=== PATIENT | male | born 1965 | race Caucasian/White ===

== ENCOUNTER 2016-09-17 15:28 | Inpatient (IN) | payer MEDICARE ==
--- NOTE | 2016-09-17 15:33 | HP ---
HISTORY OF PRESENT ILLNESS: This 51 year-old young man is admitted to the hospital as a direct admission from Dr. Wills's clinic. He has noticed a significant weight gain of over 55 pounds in the last 3 months. His weight was 417 pounds about 6 months ago and now it is over [address] Wills in the family practice clinic and Dr. Donaldson in the cardiology clinic. He has had increasing shortness of breath upon exertion. Increased circumference and swelling is noted of his proximal lower extremities, especially of the thighs with his calves and legs being primarily firm lymphedema presentation generally unchanged. He has been on Zaroxolyn plus Lasix at home but has failed to respond. He takes medicines that used to send him to the bathroom and it is not doing it as much now. He had a beta natriuretic peptide today in the clinic which we do not have the results of. Other studies in the clinical verbal results showed BUN 56 and creatinine 1.9. Hemoglobin 8.3 with it being 12.4 a year ago. He admits drinking fluids during the day of about a gallon per day. He is a diabetic on 90 units taken every morning and not skipping any doses recently. The patient is admitted to the hospital for more vigorous parenteral diuresis but efforts to be made to limit fluid intake to allow us to decrease some of the diuresis to allow the kidneys to slowly improve their functioning. Hopefully to be able to see Dr. Donaldson also in a couple of days when he visits the clinic. PAST MEDICAL HISTORY: 1. Diabetes mellitus for 20 years. 2. High blood pressure. 3. Intermittent anemia. 4. Atrial fibrillation. PAST SURGICAL HISTORY: 1. Pacemaker replacement of the battery in 2014. 2. Gastric bypass performed in 2001. 3. Significant duodenal anastomotic ulcer in 2009 requiring multiple blood transfusions. 4. [place] filter placed prior to the gastric bypass surgery in 2001 with no previous history of deep venous thrombosis noted. CURRENT MEDICATIONS: Please refer to the nurses' notes for a complete list of verified medications taken at home. ALLERGIES: NONE KNOWN. FAMILY HISTORY: Positive for diabetes mellitus, strokes, coronary artery disease and cancers. 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 He currently lives with his mother who he helps take care of. He is not a tobacco user nor a heavy alcohol drinker. REVIEW OF SYSTEMS: Significant weight gain noted as described above. No significant fever or chills. HEENT: Vision is quite good as well as hearing. LUNGS: Significant shortness of breath upon minimal exertion with the patient being unable to walk even 20 feet without almost falling to the ground because of the legs giving out. No recent falls with injury. CARDIOVASCULAR: No significant chest pains but he does have an irregular pulse with atrial fibrillation noted to come and go. ABDOMEN: No significant nausea, vomiting, diarrhea or blood in the stools, though he has had a history of gastrointestinal bleeding in the past. EXTREMITIES: Lower extremities have marked edema especially of the thighs. PHYSICAL EXAMINATION: VITAL SIGNS: Afebrile, blood pressure 132/80, respirations 18, pulse 88, pulse oximetry 97% on room air. Weight 204.4 kilos. GENERAL: The patient is very awake, alert, oriented and communicative. He is very helpful and is a good historian. The patient is very weak and has difficult ambulating because of the significant worsening dyspnea. HEENT: Within normal limits. NECK: Supple. No significant carotid bruits. CHEST: Lungs have diminished breath sounds but otherwise clear. CARDIOVASCULAR: Heart tones are fairly regular at this time with a grade 2/6 systolic murmur. ABDOMEN: Very obese yet soft with no organomegaly, masses or tenderness. EXTREMITIES: Significant prominence of thigh edema and swelling. There is a very hard, ni edema with minimal pitting to the leg below the knee. Peripheral pulses are difficult to appreciate from the edema state. NEUROLOGIC: The patient is awake, alert, oriented and communicative. No focal neurological deficits are noted, but the patient does have very significant weakness making ambulation across the room somewhat dangerous if at all possible because of the associated shortness of breath. LABORATORY: The only laboratory we have available was done in the clinic and showed an anemia with hemoglobin 8.3. Further studies to be performed shortly in the hospital for review. ASSESSMENT: 1. Marked severe exertional dyspnea probably related to fluid overload with associated pulmonary edema and congestive heart failure. 2. Chronic congestive heart failure of undetermined etiology with significant association with weight gain over the last 3 months. 3. Renal insufficiency present possibly aggravated by prerenal state with fairly heavy outpatient diuresis being tried. 4. Acute anemia with hemoglobin 8.3 with a microcytic hypochromic presentation indices. Hemoglobin was 12.4 a year ago. 5. Recent pacemaker battery replacement in 2014. 6. Chronic sleep apnea for which he uses a BiPAP occasionally not having brought it in with him from home. 7. Chronic atrial fibrillation currently not on Coumadin but is on baby aspirin because of a significant gastrointestinal bleed in the past. 8. History of gastric bypass surgery in 2001 with subsequent weight loss from over 500 pounds down to 417 pounds 6 months ago. 9. History of acute duodenal anastomotic ulcer hemorrhage in 2010 requiring multiple blood transfusions. 10. Exogenous obesity. 11. Chronic edema state worsening, especially by documented polydipsia drinking over a gallon of fluids per day. 12. Diabetes mellitus on Toujeo concentrated insulin doing fairly well yet requiring further observation and management. 13. History of hypertension. 14. History of a [place] filter in place and placed before the gastric bypass 15 years ago. No previous history of deep venous thrombosis. PLAN: The patient is admitted to the hospital for intermediate care. Fairly strict and restrictive fluid limitations are imposed and parenteral diuresis is introduced. Will try some Bumex along with the loop diuretic Lasix and observe. Diabetic diet. Continue with the Toujeo insulin 90 units every AM and adjust accordingly. Increase activity level. Have Physical Therapy evaluate for safety of ambulation and for confidence of ambulation. Await lab studies in the morning. Try a 6" Moose gentle wrap to each thigh to help mobilize some of the extra fluid in the tissues to enable increased renal clearance. Continue with SCD and Lovenox for DVT prophylaxis. Observe closely for any evidence of gastrointestinal bleed. Close followup and continue with outpatient management when clinically stable by return to Dr. Wills's clinic. #[id number] [facility]
[2016-09-17] MEDS ORDERED: NITROGLYCERIN 0.4 MG 25 EA TAB SL PRN (18:03)
[2016-09-17] MEDS ORDERED: GLUCAGON INJ 1 MG VIAL SUBCU PRN (18:03)
[2016-09-17] MEDS ORDERED: DEXTROSE 50% 25 GM/50 ML SYG IV PRN (18:03)
[2016-09-17] MEDS ORDERED: MAGNESIUM HYDROXIDE 30 ML UD PO PRN (18:03)
[2016-09-17] MEDS ORDERED: FUROSEMIDE INJ 100 MG/10 ML VIAL IV ONE (18:20)
[2016-09-17] MEDS ORDERED: LEVALBUTEROL NEBS 1.25 MG/3 ML VIAL INH SCH (18:30)
[2016-09-17] MEDS: ENOXAPARIN SODIUM 30 MG/0.3 ML SYG SUBCU SCH (18:41)
[2016-09-17] MEDS: IV SET AND CAP CHANGE INJ INJ SCH (18:41)
[2016-09-17] MEDS ORDERED: SUCRALFATE 1 GM TAB PO ONE (20:08)
[2016-09-17] MEDS ORDERED: METOPROLOL TARTRATE 50 MG TAB ONE (20:08)
[2016-09-17] MEDS ORDERED: ENALAPRIL MALEATE 5 MG TAB ONE (20:08)
[2016-09-17] MEDS: INSULIN LISPRO 100 UNITS/ML PEN SUBCU SCH (20:57)
[2016-09-17] MEDS ORDERED: ENALAPRIL MALEATE 20 MG PO SCH (21:00)
[2016-09-17] MEDS ORDERED: SUCRALFATE 1 GM/10 ML 1 GM UD PO SCH (21:00)
[2016-09-17] MEDS ORDERED: OMEPRAZOLE CAP 20 MG CAP PO SCH (21:00)
[2016-09-17] MEDS ORDERED: POTASSIUM CHLORIDE 10 MEQ TAB PO SCH (21:00)
[2016-09-17] MEDS ORDERED: NON-FORMULARY MEDICATION 1 EA MIS (Metoprolol Tartrate [Metoprolol Tartrate] 100 MG) PO SCH (21:00)
[2016-09-18] MEDS: NON-FORMULARY MEDICATION 1 EA MIS (Canagliflozin [Invokana] 300 MG) PO SCH (06:08)
[2016-09-18] MEDS ORDERED: diphenhydrAMINE HCL 25 MG CAP PO ONE (06:41)
[2016-09-18] MEDS ORDERED: ACETAMINOPHEN 325 MG TAB PO ONE (06:42)
[2016-09-18] MEDS ORDERED: OMEPRAZOLE CAP 20 MG CAP ONE (07:08)
[2016-09-18] MEDS ORDERED: POTASSIUM CHLORIDE 10 MEQ TAB PO ONE (07:08)
[2016-09-18] MEDS ORDERED: BUMETANIDE TAB 2 MG TAB ONE (07:08)
[2016-09-18] MEDS ORDERED: METOPROLOL TARTRATE 50 MG TAB ONE (07:09)
[2016-09-18] MEDS ORDERED: ASPIRIN TABLET 325 MG TAB ONE (07:09)
[2016-09-18] MEDS ORDERED: diphenhydrAMINE HCL 25 MG CAP ONE (07:09)
[2016-09-18] MEDS ORDERED: ASCORBIC ACID 500 MG TAB ONE (07:09)
[2016-09-18] MEDS ORDERED: DIGOXIN 0.25 MG TAB ONE (07:09)
[2016-09-18] MEDS ORDERED: ENALAPRIL MALEATE 5 MG TAB ONE (07:09)
[2016-09-18] MEDS ORDERED: FUROSEMIDE INJ 40 MG/4 ML VIAL ONE (07:10)
[2016-09-18] MEDS ORDERED: FLUoxetine HCL 20 MG CAP ONE (07:10)
[2016-09-18] MEDS ORDERED: SUCRALFATE 1 GM/10 ML 1 GM UD ONE (07:10)
[2016-09-18] MEDS ORDERED: ENOXAPARIN SODIUM 30 MG/0.3 ML SYG SUBCU ONE (07:10)
[2016-09-18] MEDS ORDERED: SODIUM CHLORIDE 0.9% 10 ML VIAL IV PRN (07:13)
[2016-09-18] MEDS: INSULIN LISPRO 100 UNITS/ML PEN SUBCU SCH ×4 (08:13→21:01)
[2016-09-18] MEDS: POTASSIUM CHLORIDE 10 MEQ TAB PO SCH ×2 (08:13→17:27)
[2016-09-18] MEDS: METOPROLOL TARTRATE 50 MG TAB PO SCH ×2 (08:13→17:27)
[2016-09-18] MEDS: METFORMIN HCL PO SCH ×2 (08:14→17:28)
[2016-09-18] MEDS: SITAGLIPTIN PO SCH ×2 (08:14→17:28)
[2016-09-18] MEDS: ENALAPRIL MALEATE 5 MG TAB PO SCH ×2 (09:18→20:50)
[2016-09-18] MEDS: ASCORBIC ACID 500 MG TAB PO SCH (09:18)
[2016-09-18] MEDS: ASPIRIN TABLET 325 MG TAB PO SCH (09:18)
[2016-09-18] MEDS: SUCRALFATE 1 GM/10 ML 1 GM UD PO SCH ×3 (09:19→20:50)
[2016-09-18] MEDS: FLUoxetine HCL 20 MG CAP PO SCH (09:19)
[2016-09-18] MEDS: BUMETANIDE TAB 2 MG TAB PO SCH ×2 (09:19→17:26)
[2016-09-18] MEDS: FUROSEMIDE INJ 40 MG/4 ML VIAL IV SCH ×2 (09:20→17:26)
[2016-09-18] MEDS: INSULIN GLARGINE SC SCH (09:20)
[2016-09-18] MEDS: SODIUM CHLORIDE 0.9% (FLUSH) 10 ML SYG IV SCH ×2 (09:20→20:52)
[2016-09-18] MEDS: PANTOPRAZOLE SODIUM IV 40 MG VIAL IV SCH (09:22)
[2016-09-18] MEDS: LEVALBUTEROL NEBS 1.25 MG/3 ML VIAL INH SCH ×3 (09:25→20:45)
[2016-09-18] MEDS: DIGOXIN 0.25 MG TAB PO SCH (13:00)
[2016-09-18] MEDS ORDERED: SODIUM CHLORIDE 0.9% 500ML 500 ML ONE (14:19)
[2016-09-18] MEDS: SODIUM CHLORIDE 0.9% (FLUSH) 10 ML SYG IV PRN ×2 (14:41→22:57)
[2016-09-18] MEDS: SODIUM CHLORIDE 0.9% 500ML 500 ML IVS PRN ×2 (14:42→22:56)
[2016-09-18] MEDS ORDERED: SUCRALFATE 1 GM/10 ML 1 GM UD PO SCH (16:30)
[2016-09-18] MEDS ORDERED: OMEPRAZOLE CAP 20 MG CAP PO SCH (16:30)
[2016-09-18] MEDS: ENOXAPARIN SODIUM 30 MG/0.3 ML SYG SUBCU SCH (17:38)
[2016-09-19] MEDS: SUCRALFATE 1 GM/10 ML 1 GM UD PO SCH ×4 (06:19→20:58)
--- NOTE | 2016-09-19 07:16 | RAD ---
EXAM: Two view chest. INDICATION: Chest pain. COMPARISON: Chest x-ray: None. FINDINGS: Cardiac silhouette: Mildly enlarged with a left chest wall pacemaker in place [place]: Unremarkable. Lobar consolidation: None. Pleural effusion: None. Pneumothorax: None. Other: None. Bones: Unremarkable. Other: None. IMPRESSION: 1. No acute cardiopulmonary process. Electronically signed by: Marvin Soni MD 09/19/2016 7:15 AM ENTERTAINMENT AGENT
[2016-09-19] MEDS: INSULIN LISPRO 100 UNITS/ML PEN SUBCU SCH ×4 (08:12→21:00)
[2016-09-19] MEDS: METOPROLOL TARTRATE 50 MG TAB PO SCH ×2 (08:14→16:40)
[2016-09-19] MEDS: POTASSIUM CHLORIDE 10 MEQ TAB PO SCH ×2 (08:14→16:40)
[2016-09-19] MEDS: LEVALBUTEROL NEBS 1.25 MG/3 ML VIAL INH SCH ×3 (08:49→20:17)
--- NOTE | 2016-09-19 08:56 | PN ---
SUPERVISING PHYSICIAN: Juan Peterson MD DATE: 09/18/16 SUBJECTIVE: The patient is lying in his hospital bed. He has just received one unit of blood. He states he feels much better. He denies any shortness of breath, chest pain, nausea, vomiting or abdominal pain. OBJECTIVE: VITAL SIGNS: Afebrile. Heart rate 61. Blood pressure 118/73. Respiratory rate 20. O2 saturation 95%. GENERAL: This is a 51-year-old, obese, male patient who is lying in his hospital bed. LUNGS: Clear to auscultation bilaterally, diminished at the bases. CARDIAC: Regular rate and rhythm. ABDOMEN: Soft and rounded, nontender. Bowel sounds are positive. NEUROLOGIC: Awake, alert and oriented times three. LABORATORY: Hemoglobin 8, hematocrit 25.6, BUN 54, creatinine 1.67. All other labs and films have been reviewed via the EMR. ASSESSMENT: 1. Marked severe exertional dyspnea, probably related to fluid overload with associated pulmonary edema and congestive heart failure. 2. Chronic congestive heart failure of undetermined etiology with significant association with weight gain over the last three months. 3. Renal insufficiency. 4. Acute anemia with hemoglobin 8 and hematocrit 25.6. 5. Recent pacemaker battery placement in 2014. 6. Chronic sleep apnea for which he uses BiPAP occasionally. 7. Chronic atrial fibrillation, currently not Coumadin, but is on a baby aspirin because of history of significant gastrointestinal bleed in the past. 8. History of gastric bypass surgery in 2001. His previous weight was over 500 pounds and he was 417 about six months ago. 9. History of acute duodenal anastomotic ulcer hemorrhage in 2009 requiring multiple blood transfusions. 10. Exogenous obesity. 11. Chronic edema state, worsening. 12. Diabetes mellitus on Toujeo concentrated insulin. 13. History of hypertension. 14. History of [place] filter placed before the gastric bypass 15 years ago. PLAN: At this point, he is breathing much better and he has received one unit of blood. He will receive an additional unit tonight. He said he had had a GI bleed back in [address] Lockhart had to scope him. He has not had any issues since then, so he will need very close followup with GI physician after discharge. He has not had any stool guaiacs at this point, but he diuresed almost 4 liters overnight and is feeling much improved. We will have to watch his fluid status in the morning after his blood. I have done routine lab in the morning. He will also need a cardiac consult with Dr. Donaldson for ECHO and management of his CHF. I will consult him tomorrow. We will continue to follow the patient closely, encourage good pulmonary toilet. Dr. Peterson is the collaborating physician and available for consultation. #[id number] [facility]
[2016-09-19] MEDS: FLUoxetine HCL 20 MG CAP PO SCH (09:21)
[2016-09-19] MEDS: BUMETANIDE TAB 2 MG TAB PO SCH ×2 (09:21→16:40)
[2016-09-19] MEDS: ASCORBIC ACID 500 MG TAB PO SCH (09:21)
[2016-09-19] MEDS: ENALAPRIL MALEATE 5 MG TAB PO SCH ×2 (09:21→20:58)
[2016-09-19] MEDS: ASPIRIN TABLET 325 MG TAB PO SCH (09:21)
[2016-09-19] MEDS: LINAGLIPTIN 5 MG TAB PO SCH (09:21)
[2016-09-19] MEDS: FUROSEMIDE INJ 40 MG/4 ML VIAL IV SCH ×2 (09:21→16:40)
[2016-09-19] MEDS: SODIUM CHLORIDE 0.9% (FLUSH) 10 ML SYG IV SCH ×2 (09:22→20:58)
[2016-09-19] MEDS: NON-FORMULARY MEDICATION 1 EA MIS (Canagliflozin [Invokana] 300 MG) PO SCH (10:23)
[2016-09-19] MEDS: INSULIN GLARGINE SC SCH (10:23)
[2016-09-19] MEDS: PANTOPRAZOLE SODIUM IV 40 MG VIAL IV SCH (10:31)
[2016-09-19] MEDS: SITagliptin 50 MG TAB PO SCH ×2 (10:33→16:40)
[2016-09-19] MEDS: metFORMIN HCL 500 MG TAB PO SCH ×2 (10:33→16:40)
[2016-09-19] MEDS: SITAGLIPTIN PO SCH (10:55)
[2016-09-19] MEDS: METFORMIN HCL PO SCH (10:55)
[2016-09-19] MEDS: DIGOXIN 0.25 MG TAB PO SCH (11:35)
[2016-09-19] MEDS ORDERED: CYANOCOBALAMIN INJ 1,000 MCG/ML INJ IM ONE (17:17)
--- NOTE | 2016-09-19 19:37 | PN ---
DATE: 09/19/16 SUPERVISING PHYSICIAN: Juan Peterson M.D. SUBJECTIVE: The patient is sitting up in his bed. He had just been walking in his room. He states he does feel much better, although he is still at times very weak. He was not sure what Dr. Donaldson' plan for him was, but he was told that most of his issues may be due to his low blood count. He denies any chest pain, shortness of breath, nausea, vomiting or diarrhea. Denies any dark bloody stools or tarry stools. OBJECTIVE: VITAL SIGNS: Afebrile, heart rate 76, blood pressure 144/85, respiratory rate 20, O2 sat is 96%. RESPIRATORY: Essentially clear to auscultation bilaterally. CARDIAC: Regular rate and rhythm. ABDOMEN: Soft, nondistended, non-tender. Bowel sounds are positive. NEUROLOGIC: He is awake, alert and oriented times three. LABORATORY: WBCs are 6.9, hemoglobin 9.2, hematocrit 29.7. Sodium 139, potassium 3.7, chloride 97, carbon dioxide 33, BUN 45, creatinine 1.34. Chest x -ray shows no acute cardiopulmonary process. Echocardiogram today per Dr. Donaldson shows a left ventricular ejection fraction of 55 to 60%. He has severe left atrial enlargement and trace to mild lateral valve regurgitation. There is moderate tricuspid valve regurgitation in her right ventricle, systolic pressure is approximately 45 mm which is a moderate elevation. Dr. Donaldson stated that he believed the patient's symptoms are mostly on the basis of the anemia which needs to be further evaluated, and he recommended that his hemoglobin stay at 9 or greater. All other labs and films have been reviewed via the EMR. ASSESSMENT: 1. Marked severe exertional dyspnea probably related to fluid overload with associated pulmonary edema and congestive heart failure. 2. Chronic congestive heart failure with an ejection fraction of 55 to 60% per echocardiogram that Dr. Donaldson performed today. 3. Renal insufficiency. 4. Acute anemia with a hemoglobin that is 9.2 even after 2 units of packed red blood cells. Hemoglobin was 8 yesterday. 5. Recent pacemaker battery replacement in 2014. 6. Chronic sleep apnea for which he uses BiPAP occasionally. 7. Chronic atrial fibrillation, currently not Coumadin, but is on a baby aspirin because of history of significant gastrointestinal bleed in the past. 8. History of gastric bypass surgery in 2001. His previous weight was over 500 pounds and he was 417 about six months ago. 9. History of acute duodenal anastomotic ulcer hemorrhage in 2010 requiring multiple blood transfusions. 10. Exogenous obesity. 11. Chronic edema state, worsening. 12. Diabetes mellitus on Toujeo concentrated insulin. 13. History of hypertension. PLAN: We will continue present supportive care. I have discontinued his Lovenox for now. Based on Dr. Donaldson' recommendations, I will repeat his CBC and chemistries in the morning. I suspect that he will need another 2 units of packed red blood cells. I have encouraged him to get up and ambulate. He does have a [place] filter, but he does need to get up and about to prevent DVTs. We will decide tomorrow if he needs to be continued on the baby aspirin. He has hemoccult for his stool ordered, but the nurse was unable to get a sample of his stool today. The patient and I have talked about it and he knows to call the nurse if he has a bowel movement so we can do the hemoccult on his stool. He will most likely need close followup with his H&H as we want to keep his hemoglobin greater than 9. I have also given him a B12 injection. I am not sure where his blood loss is coming from, but we will monitor his stool guaiacs as well as his hemoglobin. He may need to be scoped by Dr. Lockhart again. Otherwise we will continue to monitor the patient closely and followup as needed. Dr. Peterson is the collaborating physician available for consultation. #[id number] [facility]
[2016-09-20] MEDS ORDERED: ACETAMINOPHEN W/COD #3 TAB 1 EA TAB PO PRN (00:44)
[2016-09-20] MEDS ORDERED: ACETAMINOPHEN 325 MG TAB PO ONE (00:58)
[2016-09-20] MEDS: SUCRALFATE 1 GM/10 ML 1 GM UD PO SCH ×4 (06:39→21:30)
[2016-09-20] MEDS: NON-FORMULARY MEDICATION 1 EA MIS (Canagliflozin [Invokana] 300 MG) PO SCH (06:40)
[2016-09-20] MEDS: LEVALBUTEROL NEBS 1.25 MG/3 ML VIAL INH SCH ×3 (08:46→20:23)
[2016-09-20] MEDS: INSULIN LISPRO 100 UNITS/ML PEN SUBCU SCH ×4 (08:51→21:30)
[2016-09-20] MEDS: metFORMIN HCL 500 MG TAB PO SCH ×2 (08:52→17:10)
[2016-09-20] MEDS: METOPROLOL TARTRATE 50 MG TAB PO SCH ×2 (08:53→17:09)
[2016-09-20] MEDS: BUMETANIDE TAB 2 MG TAB PO SCH ×2 (08:54→17:09)
[2016-09-20] MEDS: FLUoxetine HCL 20 MG CAP PO SCH (08:54)
[2016-09-20] MEDS: LINAGLIPTIN 5 MG TAB PO SCH (08:54)
[2016-09-20] MEDS: POTASSIUM CHLORIDE 10 MEQ TAB PO SCH ×2 (08:54→17:07)
[2016-09-20] MEDS: ENALAPRIL MALEATE 5 MG TAB PO SCH ×2 (08:54→21:30)
[2016-09-20] MEDS: INSULIN GLARGINE SC SCH (08:55)
[2016-09-20] MEDS: ASPIRIN TABLET 325 MG TAB PO SCH (08:55)
[2016-09-20] MEDS: ASCORBIC ACID 500 MG TAB PO SCH (08:55)
[2016-09-20] MEDS: FUROSEMIDE INJ 40 MG/4 ML VIAL IV SCH ×2 (09:00→17:10)
[2016-09-20] MEDS: PANTOPRAZOLE SODIUM IV 40 MG VIAL IV SCH (09:01)
[2016-09-20] MEDS: SODIUM CHLORIDE 0.9% (FLUSH) 10 ML SYG IV SCH ×2 (09:02→21:30)
[2016-09-20] MEDS: SITagliptin 50 MG TAB PO SCH ×2 (09:10→17:07)
[2016-09-20] MEDS: DIGOXIN 0.25 MG TAB PO SCH (12:26)
[2016-09-20] MEDS: FERROUS SULFATE 325 MG TAB PO SCH ×2 (12:26→17:10)
--- NOTE | 2016-09-20 12:38 | PN ---
DATE: 09/20/16 SUPERVISING PHYSICIAN: Juan Peterson M.D. SUBJECTIVE: The patient is sitting up in bed. We discussed his anemia and that he is very low in iron and that we would be giving him supplemental iron. I also informed him that he will be getting his third unit of packed red blood cells today because his hemoglobin was 9.[address] Donaldson would like us to keep it about 9. He has no complaints of chest pain, shortness of breath, nausea or vomiting. He did say he was trying to get up and move about as much as he could. OBJECTIVE: VITAL SIGNS: He is afebrile, heart rate 65, blood pressure 137/79, respiratory rate 20, O2 sat is 94% on room air. RESPIRATORY: Clear to auscultation bilaterally. CARDIAC: Regular rate and rhythm. ABDOMEN: Soft, nondistended, non-tender. Bowel sounds are positive. EXTREMITIES: No cyanosis , clubbing or edema. LABORATORY: Hemoglobin 9.1, hematocrit 29.7. Sodium 139, potassium 3.8, chloride 94, carbon dioxide 35, BUN 40, creatinine 1.54. Iron 15, TIBC 628.6, iron saturation 2.3. Vitamin B12 and folate are pending. Stool guaiac was, according to the Lab, slightly positive. All other labs and films have been reviewed via the EMR. ASSESSMENT: 1. Marked severe exertional dyspnea probably related to fluid overload with associated pulmonary edema and congestive heart failure. 2. Chronic congestive heart failure with an ejection fraction of 55 to 60% per echocardiogram that Dr. Donaldson performed today. 3. Renal insufficiency. 4. Acute iron deficiency anemia with a hemoglobin of 9.1 today. Will give third unit of blood today. 5. Recent pacemaker battery replacement in 2014. 6. Chronic sleep apnea for which he uses BiPAP occasionally. 7. Chronic atrial fibrillation, currently not Coumadin, but is on a baby aspirin because of history of significant gastrointestinal bleed in the past. 8. History of gastric bypass surgery in 2001. His previous weight was over 500 pounds and he was 417 about six months ago. 9. History of acute duodenal anastomotic ulcer hemorrhage in 2009 requiring multiple blood transfusions. 10. Exogenous obesity. 11. Chronic edema state, worsening. 12. Diabetes mellitus on Toujeo concentrated insulin. 13. History of hypertension. PLAN: We will give the third unit of blood that he has had during this admission to keep his hemoglobin above the recommended 9. He did a stool guaiac at Dr. Wills's office earlier this week. It was negative. The one today from the Lab was slightly positive. Will try to get at least 1 additional , it would probably be helpful for 2 additional, but we will try to get at least 1 additional stool guaiac done. If he does not have 1 before he is discharged, we will need to send him home with stool guaiac cards. I will also start him on some iron. He will most likely need a hematology consultation as well as a gastrointestinal consultation, especially if an additional guaiac is positive. Will followup very closely with Dr. Wills next week. I will order some routine lab in the morning. Depending on how he feels after his blood is infused, he will either go home this evening or tomorrow. I have encouraged to ambulate as frequently as possible. He said he has been getting up in his room and walking. I have encouraged good pulmonary hygiene. We will continue to monitor the patient closely and followup as needed. Dr. Peterson is the collaborating physician available for consultation. #[id number] [facility]
[2016-09-20] MEDS: SODIUM CHLORIDE 0.9% 500ML 500 ML IVS PRN (13:47)
[2016-09-20] MEDS: IV SET AND CAP CHANGE INJ INJ SCH (19:30)
[2016-09-20] MEDS ORDERED: ZOLPIDEM TARTRATE 10 MG TAB PO PRN (20:56)
[2016-09-20] MEDS: metOLazone 2.5 MG TAB PO SCH (22:33)
[2016-09-21] MEDS: SUCRALFATE 1 GM/10 ML 1 GM UD PO SCH ×2 (06:38→09:34)
[2016-09-21] MEDS: NON-FORMULARY MEDICATION 1 EA MIS (Canagliflozin [Invokana] 300 MG) PO SCH (06:39)
[2016-09-21] MEDS: INSULIN LISPRO 100 UNITS/ML PEN SUBCU SCH ×2 (07:13→12:06)
[2016-09-21] MEDS: FERROUS SULFATE 325 MG TAB PO SCH ×2 (07:22→12:08)
[2016-09-21] MEDS: metFORMIN HCL 500 MG TAB PO SCH (07:23)
[2016-09-21] MEDS: POTASSIUM CHLORIDE 10 MEQ TAB PO SCH ×2 (07:23→11:09)
[2016-09-21] MEDS: METOPROLOL TARTRATE 50 MG TAB PO SCH (07:23)
[2016-09-21] MEDS: SITagliptin 50 MG TAB PO SCH (07:23)
[2016-09-21] MEDS: LEVALBUTEROL NEBS 1.25 MG/3 ML VIAL INH SCH (08:50)
[2016-09-21] MEDS: SODIUM CHLORIDE 0.9% (FLUSH) 10 ML SYG IV SCH (09:00)
[2016-09-21] MEDS: ASPIRIN TABLET 325 MG TAB PO SCH (09:00)
[2016-09-21] MEDS ORDERED: POTASSIUM CHLORIDE 10 MEQ TAB PO SCH (09:00)
[2016-09-21] MEDS: metOLazone 2.5 MG TAB PO SCH (09:08)
[2016-09-21] MEDS: BUMETANIDE TAB 2 MG TAB PO SCH (09:08)
[2016-09-21] MEDS: FLUoxetine HCL 20 MG CAP PO SCH (09:08)
[2016-09-21] MEDS: LINAGLIPTIN 5 MG TAB PO SCH (09:08)
[2016-09-21] MEDS: ENALAPRIL MALEATE 5 MG TAB PO SCH (09:08)
[2016-09-21] MEDS: ASCORBIC ACID 500 MG TAB PO SCH (09:08)
[2016-09-21] MEDS: FUROSEMIDE INJ 40 MG/4 ML VIAL IV SCH (09:09)
[2016-09-21] MEDS: PANTOPRAZOLE SODIUM IV 40 MG VIAL IV SCH (09:09)
[2016-09-21] MEDS: INSULIN GLARGINE SC SCH (09:10)
[2016-09-21] MEDS ORDERED: LEVALBUTEROL NEBS 1.25 MG/3 ML VIAL NEB SCH (10:00)
[2016-09-21 10:50] VITALS: BP 137/71; TEMP 98.4; O2SAT 98
[2016-09-21] MEDS: DIGOXIN 0.25 MG TAB PO SCH (12:08)
[2016-09-21] MEDS ORDERED: metOLazone 2.5 MG TAB PO SCH (16:30)
--- NOTE | 2016-09-21 17:46 | DS ---
SUPERVISING PHYSICIAN: Juan Peterson M.D. DISCHARGE DIAGNOSIS: 1. Marked severe exertional dyspnea on admission possibly secondary to fluid overload with associated pulmonary edema and congestive heart failure with some components contributed by acute anemia. 2. Chronic congestive heart failure with an ejection fraction of 55 to 60% per echocardiogram per Dr. Donaldson on 09/19/16. 3. Renal insufficiency. 4. Acute iron deficiency anemia treated with iron and 3 units of packed red blood cells. 5. Recent pacemaker battery replacement in 2014. 6. Chronic sleep apnea secondary to obesity for which he uses BiPAP occasionally. 7. Chronic atrial fibrillation not on Coumadin due to a significant history of gastrointestinal bleed with the patient being currently on aspirin. 8. History of gastric bypass surgery in 2001 with previous weight over 500 pounds with current weight at discharge shown to be 403 pounds which is down from admission weight of 435 pounds. 9. History of acute duodenal anastomotic ulcer hemorrhage in 2009 requiring extensive blood transfusions. 10. Exogenous obesity with a BMP of 45.5. 11. Diabetes mellitus type 2 on jeo. 12. History of hypertension. HISTORY OF PRESENT ILLNESS: Mr. Carballo is a 51 year-old man patient who was admitted to the hospital directly from Dr. Wills's clinic. It was noted that the patient had a significant weight gain of over 55 pounds in the last 3 months. His weight was 417 pounds about 6 months previously and he has maxed out to over [address] Wills in the family practice clinic and Dr. Donaldson as well at Cardiology. He has had increasing shortness of breath upon exertion as well as increasing circumference and swelling noted of his proximal lower extremities, especially of the thighs, calves and legs being primarily firm lymphedema presentation. This remains unchanged. He has been on Zaroxolyn plus Lasix at home but has failed to have significant response. He takes medicines that used to send him to the bathroom and he is not doing it as much now. He had a beta natriuretic peptide on admission in the clinic and upon admission to the Medical/Surgical floor which showed to be 222. Laboratory studies in the clinic also showed that he had a BUN 56 and creatinine 1.9. Hemoglobin 8.3 with last noted hemoglobin to be 12.4 approximately a year previously. He admits drinking fluids during the day of about a gallon per day. He is a diabetic on 90 units insulin which he takes every morning and has been doing it consistently. The patient was admitted to the hospital for more vigorous parenteral diuresis in efforts to limit his fluid intake to allow for a decrease in the fluid overload with diuresis to assist with improvement of kidney function as well. He was also seen in followup during hospitalization with consultation with Dr. Donaldson who did an echocardiogram. Per report and it was noted per Dr. Donaldson that the patient had an ejection fraction of 55 to 65%. [address]. Donaldson noted he felt that the severe exertional dyspnea was more related to his ongoing severe iron deficiency anemia. LABORATORY: On initial admission, hemoglobin was 8, hematocrit 25.6. After a total transfusion of 3 units at time of discharge on 09/21 his hemoglobin was stable at 9.8 and hematocrit 31.6. White count remained within normal limits, at discharge was 9.6. Platelet count as well was within normal limits at discharge at 203,000. Differential showed to be within normal limits. Coagulation studies on admission showed INR of 1.16 with PT 13.1. Chemistries initially on admission showed normal electrolytes with potassium 4.0, BUN 54, creatinine 1.6. Liver functions showed all to be within normal limits. Troponin at less than 0.02. BNP was elevated on admission at 222. After diuresis, blood and treatment completion, the patient did show improvement in his BUN daily and at time of discharge was at 35, creatinine 1.59. Potassium was slightly low at 3.5 secondary to his diuresis. Sodium was normal at 141. Glucoses ranged from 81 to 166. He did have 1 occult blood that was positive. No microbiology specimens were submitted for culture. RADIOLOGY: He had a chest x-ray after admission to the surgical floor 2 view per radiology interpretation showed no acute cardiopulmonary processes with no pleural effusions or any lobar consolidations. The cardiac silhouette was noted to be mildly enlarged. HOSPITAL COURSE: Mr. Carballo is a 51 year-old male patient was noted in the History of Present Illness admitted for severe dyspnea and fluid overload. He was given diuresis with Lasix, Bumex and Zaroxolyn. His I's and O 's did show good results with average output daily being negative well over 3, 000. Initial weight on admission was 204.3 kilos, at time of discharge it decreased to 183.25 kilos. He remained afebrile through the admission. Vital signs: Blood pressure remained within normal limits, at time of discharge it was 137/71, satting 98% on room air. He did get 3 units of packed red blood cells which helped dramatically improve his work of breathing and decrease the exertional dyspnea. Clinically the patient did improve quite well again with fluid restrictions, diuresis and diabetic control with sliding scale. Clinically it was felt that he had improved well enough to be discharged home to followup with Dr. Wills next week as scheduled, and to have continued followup with probable GI as well as hematology in regards to the iron deficiency anemia and possible GI bleed. He did have 1 occult blood positive, but his H&H remained stable through admission with transfusion. He showed no overt blood loss per rectum or emesis. He was seen in consultation by Dr. Donaldson who did an echocardiogram in office with an estimated ejection fraction of 55 [address] 60%. [address]. Donaldson noted that he felt the patient's symptoms were more related to his obesity and severe anemia, less likely cardiac in nature. With the patient being clinically stable, he was discharged. PLAN: The patient was discharged on 09/21/16 to have close clinical followup with Dr. Wills as scheduled on 09/23/16 at 9:00 and to have specialty consultations with Hematology and Gastrointestinal services. This can be arranged through Dr. Wills's office. He was to resume all of his medication as previously instructed prior to admission and to take new medications as directed. He was instructed to take MiraLAX daily and Milk of Magnesia twice weekly to prevent any constipation secondary to taking iron therapy and Carafate. He was encouraged to use the rolling walker when ambulating to prevent falls. He was also given occult blood cards times three and to return to the hospital after collection. He was encouraged to increase activity as tolerated and to return to an 1800 ADA diet. He was instruction to return to the hospital should his condition worsen or show no improvement. NEW MEDICATIONS AT DISCHARGE: 1. Ferrous sulfate 325 mg tablet 3 times daily with food, #60. 2. MiraLAX daily as directed. All other medications were continued as previous to hospitalization. #[id number] [facility]
== END 2016-09-21 12:50 | disposition home or self-care (01) | DRG 292 ==
LOC: MS 15:28
PROVIDERS: ADMIT Family Medicine; ATTEND Nurse Practitioner Family
PROC: 30233N1 Transfusion of Nonautologous Red Blood Cells into Peripheral Vein, Percutaneous Approach (ICD-10-PCS; principal; 2016-09-18)
DX: I11.0 Hypertensive heart disease with heart failure (principal); Z68.42 Body mass index [BMI] 45.0-49.9, adult; I50.9 Heart failure, unspecified; D50.9 Iron deficiency anemia, unspecified; N28.9 Disorder of kidney and ureter, unspecified; R19.5 Other fecal abnormalities; G47.30 Sleep apnea, unspecified; E11.9 Type 2 diabetes mellitus without complications; E66.9 Obesity, unspecified; I48.2 Chronic atrial fibrillation; Z95.0 Presence of cardiac pacemaker; Z79.82 Long term (current) use of aspirin; Z98.84 Bariatric surgery status; Z79.84 Long term (current) use of oral hypoglycemic drugs; Z79.4 Long term (current) use of insulin; Z95.828 Presence of other vascular implants and grafts

== ENCOUNTER → 2016-09-30 | Outpatient (CLI) | payer MEDICARE | END | disposition home or self-care (01) | LOC: LAB.O 13:03 | PROVIDERS: ATTEND Nurse Practitioner Family | DX: D64.9 Anemia, unspecified (principal); K92.2 Gastrointestinal hemorrhage, unspecified ==

== ENCOUNTER → 2017-06-23 | Outpatient (CLI) | payer OTHER | END | disposition home or self-care (01) | LOC: GMAB 14:33 | PROVIDERS: ATTEND Family Medicine | DX: L03.116 Cellulitis of left lower limb (principal); D50.0 Iron deficiency anemia secondary to blood loss (chronic); Z12.5 Encounter for screening for malignant neoplasm of prostate; E11.42 Type 2 diabetes mellitus with diabetic polyneuropathy; E11.628 Type 2 diabetes mellitus with other skin complications | CPT/HCPCS: 82728; 83540; 83550; 84443; 86140; G0103 ==

== ENCOUNTER → 2017-10-01 | Outpatient (CLI) | payer OTHER | LOC: GMAB 18:15 | PROVIDERS: ATTEND Family Medicine | DX: D50.0 Iron deficiency anemia secondary to blood loss (chronic) (principal); R23.3 Spontaneous ecchymoses; E29.1 Testicular hypofunction; E11.65 Type 2 diabetes mellitus with hyperglycemia ==

== ENCOUNTER 2018-04-10 07:27 | Inpatient (IN) | payer OTHER ==
[2018-04-10] MEDS ORDERED: TETANUS,DIPHTHERIA,PERTUSSIS 1 EA SYG IM ONE (07:59)
[2018-04-10] MEDS ORDERED: cefTRIAXone SODIUM 2 GM in SODIUM CHL 0.9% 100ML MINI-BAG 100 ML IVPB ONE (07:59)
--- NOTE | 2018-04-10 07:59 | ED.PDOC ---
History of Present Illness - General Chief Complaint: Skin/Abrasion/Tear Stated Complaint: Redness, swelling to LLE Time Seen by Provider: 04/10/18 07:55 Source: patient Exam Limitations: no limitations - History of Present Illness Initial Comments: patient comes in today via EMS for recurrence of cellulitis. Patient states he' s had 3 episodes since January and he has chronic problems with that leg secondary to lymphedema. Patient states normally Keflex seems to help just fine but this time he has not been able to go in to see his doctor. Patient states the infection started on Thursday but since then it has worsened and now he is having systemic symptoms including subjective fever, malaise, and his hands being cold. Patient normally is treated with Keflex for this and that seems to do well. Patient denies any nausea or vomiting. Additionally, patient fell in his home several days ago. Although he landed sitting down and was able to get up on his own he's had left shoulder pain ever since. He is not sure if he caught himself on it or if he hit it when he was going down after he tripped but he has been unable to fully raise that arm ever since. He does have normal sensation and it's not particularly painful when it's at rest braced against his body. Patient has a past medical history of diabetes mellitus, hypertension , lymphedema, pacemaker placement, and congestive heart failure. Additionally, he has the lymphedema that he suffers from. He has no known drug allergies but has had a reaction he thinks in the past to shrimp. Timing/Duration: 1 week, getting worse Severity: moderate Improving Factors: nothing Worsening Factors: nothing Associated Symptoms: fever/chills, other - shoulder pain see hpi Allergies/Adverse Reactions: Allergies NO KNOWN ALLERGY Allergy (Verified 09/18/16 07:37) Home Medications: Ambulatory Orders Metoprolol Tartrate 100 mg PO BEDTIME 01/03/14 Omeprazole [Prilosec Cap] 20 mg PO BID 01/03/14 Sucralfate [Carafate] 1 gm PO BID 01/03/14 Ascorbic Acid [Vitamin C] 1,000 mg PO BID 09/17/16 Aspirin 325 mg PO BID 09/17/16 Canagliflozin [Invokana] 300 mg PO ACBK 09/17/16 Digoxin [Digitek] 250 mcg PO DAILY 09/17/16 Enalapril Maleate [Vasotec] 20 mg PO BID 09/17/16 Fluoxetine HCl [Prozac] 40 mg PO DAILY 09/17/16 Furosemide [Lasix] 40 mg PO BID 09/17/16 Insulin Glargine [Toujeo Solostar] 100 unit SC DAILY 09/17/16 Potassium Chloride [Potassium Chloride ER] 10 meq PO BIDFD 09/17/16 Zolpidem Tartrate [Ambien] 10 mg PO BEDTIME PRN 09/17/16 metOLazone [Zaroxolyn] 10 mg PO BID 09/17/16 Ferrous Sulfate [Feosol Tab] 325 mg PO DAILY 04/10/18 traZODone HCL [Desyrel] 50 mg PO BEDTIME 04/10/18 Past Medical History (General) - Patient Medical History Hx Seizures: No Hx Stroke: No Hx Asthma: No Hx of COPD: No Hx Cardiac Disorders: Yes - Arrhythmia Hx Congestive Heart Failure: Yes Hx Pacemaker: Yes Hx Hypertension: Yes Hx Diabetes: Yes Hx Gastroesophageal Reflux: Yes - Hx bleeding ulcer Hx MRSA: No Surgical History: gastric bypass, pacemaker - Vaccination History Hx Influenza Vaccination: No Hx Pneumococcal Vaccination: No - Social History Hx Tobacco Use: No Hx Alcohol Use: No Hx Substance Use: No Hx Substance Use Treatment: No Hx Physical Abuse: No Hx Emotional Abuse: No Family Medical History - Family History Father Living Status: Age at (years of age): 84 Cause of : Stroke Hx Family Asthma: No Hx Family Congestive Heart Failure: No Hx Family Hypertension: No Hx Family Stroke: Yes Hx Cardiac Disease: No Hx Family Diabetes: No Hx Family Cancer: No Mother Family History: Unknown Age (years): 81 Living Status: Still Living Hx Family Asthma: Yes Hx Family Congestive Heart Failure: No Hx Family Hypertension: Yes Hx Family Stroke: Yes - X2 Hx Cardiac Disease: No Hx Family Diabetes: Yes Hx Family Cancer: No Progress - Progress Progress: After receiving his results we have asked patient about his kidneys. He states now that he thinks about it he has been told that by his PCP. Patient states that he still is taking his Naprosyn for pain. We explained this is very important and he should stop taking that medication and no take other dose of Toradol like what he was given today. He voices understanding. 04/10/18 09:22 04/10/18 10:34 received labs from clinic and his baseline is 1.5. He admits to doubling his water pills lately. 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 - Results/Orders Results/Orders: Laboratory Results WBC 11.1 K/mm3 (4.8-10.8) H 04/10/18 08:25 RBC 4.19 M/mm3 (4.70-6.10) L 04/10/18 08:25 Hgb 13.6 gm/dL (14.0-18.0) L 04/10/18 08:25 Hct 40.4 % (42.0-52.0) L 04/10/18 08:25 MCV 96.4 fl (80.0-94.0) H 04/10/18 08:25 MCH 32.4 pg (27.0-31.0) H 04/10/18 08:25 MCHC 33.6 g/dL (33.0-37.0) 04/10/18 08:25 RDW 15.7 % (11.5-14.5) H 04/10/18 08:25 Plt Count 106 K/mm3 (130-400) L 04/10/18 08:25 MPV 10.5 fl (7.40-10.4) H 04/10/18 08:25 Absolute Neuts (auto) 9.50 K/uL (1.8-6.8) H 04/10/18 08:25 Absolute Lymphs (auto) 0.40 K/uL (1.0-3.4) L 04/10/18 08:25 Absolute Monos (auto) 1.10 K/uL (0.2-0.8) H 04/10/18 08:25 Absolute Eos (auto) 0.00 K/uL (0.0-0.4) 04/10/18 08:25 Absolute Basos (auto) 0.00 K/uL (0.0-0.1) 04/10/18 08:25 Neutrophils % 85.9 % (42.0-78.0) H 04/10/18 08:25 Lymphocytes % 3.8 % (20.0-50.0) L 04/10/18 08:25 Monocytes % 9.9 % (2.0-9.0) H 04/10/18 08:25 Eosinophils % 0.1 % (1.0-5.0) L 04/10/18 08:25 Basophils % 0.3 % (0.0-2.0) 04/10/18 08:25 Sodium 133 mmol/L (135-145) L 04/10/18 08:25 Potassium 3.6 mmol/L (3.6-5.0) 04/10/18 08:25 Chloride 93 mmol/L (101-111) L 04/10/18 08:25 Carbon Dioxide 24 mmol/L (21-31) 04/10/18 08:25 Anion Gap 19.6 (12-18) H 04/10/18 08:25 BUN 93 mg/dL (7-18) H 04/10/18 08:25 Creatinine 4.13 mg/dL (0.6-1.3) H 04/10/18 08:25 BUN/Creatinine Ratio 22.5 (10-20) H 04/10/18 08:25 Random Glucose 236 mg/dL (70-105) H 04/10/18 08:25 Serum Osmolality 302.7 mOsm/L (275-295) H 04/10/18 08:25 Lactic Acid 1.2 mmol/L (0.5-2.2) 04/10/18 08:25 Calcium 8.7 mg/dL (8.4-10.2) 04/10/18 08:25 Total Bilirubin 1.9 mg/dL (0.2-1.0) H 04/10/18 08:25 AST 77 IU/L (10-42) H 04/10/18 08:25 ALT 61 IU/L (10-60) H 04/10/18 08:25 Alkaline Phosphatase 144 IU/L (42-121) H 04/10/18 08:25 Serum Total Protein 7.2 gm/dL (6.4-8.2) 04/10/18 08:25 Albumin 3.1 g/dl (3.2-5.5) L 04/10/18 08:25 Globulin 4.1 gm/dL (2.3-3.5) H 04/10/18 08:25 Albumin/Globulin Ratio 0.8 (1.1-1.9) L 04/10/18 08:25 Departure - Departure Clinical Impression: Cellulitis Qualifiers: Site of cellulitis: extremity Site of cellulitis of extremity: lower extremity Laterality: left Qualified Code(s): L03.116 - Cellulitis of left lower limb Disposition: Admit Patient Condition: Fair Departure Forms: ED Discharge - Pt. Copy, Patient Portal Self Enrollment Instructions: DI for Abrasion Referrals: Donnell Wills MD [Active Staff] - 1-2 Weeks Home Medications: Ambulatory Orders Metoprolol Tartrate 100 mg PO BEDTIME 01/03/14 Omeprazole [Prilosec Cap] 20 mg PO BID 01/03/14 Sucralfate [Carafate] 1 gm PO BID 01/03/14 Ascorbic Acid [Vitamin C] 1,000 mg PO BID 09/17/16 Aspirin 325 mg PO BID 09/17/16 Canagliflozin [Invokana] 300 mg PO ACBK 09/17/16 Digoxin [Digitek] 250 mcg PO DAILY 09/17/16 Enalapril Maleate [Vasotec] 20 mg PO BID 09/17/16 Fluoxetine HCl [Prozac] 40 mg PO DAILY 09/17/16 Furosemide [Lasix] 40 mg PO BID 09/17/16 Insulin Glargine [Toujeo Solostar] 100 unit SC DAILY 09/17/16 Potassium Chloride [Potassium Chloride ER] 10 meq PO BIDFD 09/17/16 Zolpidem Tartrate [Ambien] 10 mg PO BEDTIME PRN 09/17/16 metOLazone [Zaroxolyn] 10 mg PO BID 09/17/16 Ferrous Sulfate [Feosol Tab] 325 mg PO DAILY 04/10/18 traZODone HCL [Desyrel] 50 mg PO BEDTIME 04/10/18
--- NOTE | 2018-04-10 08:11 | RAD ---
EXAM DESCRIPTION: Humerus,Left CLINICAL HISTORY: 53 years Male, fall with pain to left shoulder COMPARISON: None. FINDINGS: No fracture or dislocation. Soft tissues are unremarkable. IMPRESSION: No acute abnormality. Electronically signed by: Jaxon Kern DO 04/10/2018 8:10 AM CDT
--- NOTE | 2018-04-10 08:12 | RAD ---
EXAM DESCRIPTION: Shoulder,Left 2 or More Views CLINICAL HISTORY: 53 years Male, fall with pain to left shoulder COMPARISON: None. FINDINGS: No fracture or dislocation. Degenerative changes in the AC joint. Soft tissues are unremarkable. Visualized lung gong are clear. Pacemaker is partially visualized. IMPRESSION: No acute abnormality. Electronically signed by: Jaxon Kern DO 04/10/2018 8:10 AM CDT
[2018-04-10] MEDS ORDERED: KETOROLAC TROMETHAMINE INJ 30 MG/ML VIAL IV ONE (08:34)
[2018-04-10] MEDS ORDERED: CYCLOBENZAPRINE HCL 5 MG TAB PO ONE (08:34)
[2018-04-10] MEDS ORDERED: SODIUM CHL 0.9% 100ML MINI-BAG 100 ML IVPB ONE (08:44)
--- NOTE | 2018-04-10 11:00 | HP ---
SUPERVISING PHYSICIAN: Tushar Almaguer M.D. CHIEF COMPLAINT: Swelling of left lower leg with redness and cellulitis. HISTORY OF PRESENT ILLNESS: Mr. Carballo is a 53 year-old male patient that presented to the Emergency Room today via EMS with left lower leg cellulitis. He reports that he has had 3 previous episodes since this past January and has chronic lymphedema resulting in chronic lower extremity swelling. He notes in the past he just takes Keflex and he gets better, but he has not been able to see his doctor since Dr. Wills retired. He also notes that it started worsening since Thursday and has continued to just not improve, and today he started having some subjective fever and more symptoms, and at that time called 911. He is morbidly obese, over 400 pounds, and has in the past had a surgical weight loss surgery with a gastric bypass. He notes that he fell yesterday and he landed on his buttocks and in attempting to try to get injured his left shoulder. He does have a history of diabetes mellitus, hypertension as well as congestive heart failure. On laboratory studies in the E. [facility] today, it was showing that he had a significant decrease in renal function from baseline with a creatinine of 4.13 which baseline creatinine in the past has been around 1.3 to 1.6. BUN was 99. He notes that he has been trying to keep plenty of fluids , but has become significantly dehydrated. He denied any nausea, vomiting or diarrhea. White count showed just a mild leukocytosis of 11,100 but there was a left shift. The patient also reports that he takes Naprosyn twice daily for generalized body aches and specifically knee pain. Dr. Lino requested the patient be admitted for ongoing treatment of lower left leg cellulitis and acute renal failure. The patient is now going to be admitted to the Medical/ Surgical floor for further treatment and evaluation, and was stable at time of admission. PAST MEDICAL HISTORY: 1. Diabetes mellitus diagnosed 20 years previously on both orally therapy as well as insulin. 2. Hypertension. 3. Intermittent anemia secondary to gastrointestinal bleeds as well as gastric bypass. 4. Atrial fibrillation with a pacemaker implanted. PAST SURGICAL HISTORY: 1. Pacemaker implantation in 1999 with a battery change in 2014. 2. Gastric bypass in 2001. 3. Duodenal anastomotic ulcer in 2009 requiring multiple blood transfusions. 4. [place] filter placement prior to his gastric bypass surgery in 2001 but no history of deep venous thrombus. CURRENT MEDICATIONS: 1. Zaroxolyn 10 mg at bedtime. 2. Desyrel 50 mg at bedtime. 3. Ambien 10 mg at bedtime as needed. 4. Carafate 1 gram b.i.d. 5. Prilosec 20 mg b.i.d. 6. Metoprolol 100 mg at bedtime. 7. Lasix 40 mg b.i.d. 8. Prozac 40 mg daily. 9. Feosol tablets 325 mg daily. 10. Vasotec 20 mg b.i.d. for blood pressure control. 11. Digitek 250 mcg daily. 12. Invokana 300 mg at breakfast. 13. Aspirin. 14. Vitamin C 1,000 mg b.i.d. 15. Potassium chloride 10 mEq b.i.d. 16. Toujeo Solostar 100 units subcue daily. ALLERGIES: NO KNOWN DRUG ALLERGIES. FAMILY HISTORY: Positive for diabetes mellitus, strokes, coronary artery disease and cancers. SOCIAL HISTORY: He has worked in the past as a truck mechanic and heavy equipment operator/paver, but is disabled at this point secondary to severe knee degenerative disorder. He lives in [place]. His mother lives with him who he helps take care of. He has never smoked but drinks beer on a rare occasion. REVIEW OF SYSTEMS: CONSTITUTIONAL: He reports general malaise, weakness, fever subjective. He denies any significant weight changes. HEENT: Denies any headaches, sore throat, nasal congestion, ear aches. CHEST: No significant shortness of breath other than just his normal exertional dyspnea. No wheezing or coughing. CARDIOVASCULAR: Denies any chest pains, palpitations. Does have a history of atrial fibrillation and chronic peripheral edema. GASTROINTESTINAL: Denies any nausea or vomiting, diarrhea or constipation. Notes that his stools change somewhat in color from dark black to green, but denies any bright red blood. EXTREMITIES: As noted in History of Present Illness, marked edema especially involving the thighs and the left lower leg. NEUROLOGIC: Denies any headaches but notes his thought process seems to be fuzzy. He has had a significant increase in weakness but no ataxia. No seizures, but he has had weakness that resulted in falls. He does note he has chronic paresthesias or numbness to both legs below the knees secondary to diabetic neuropathy. No other neurological deficits. PHYSICAL EXAMINATION: VITAL SIGNS: Temperature on admission st 98.4, pulse 63, blood pressure 131/70 , respirations 20, satting 94% on room air. Admission weight was 199.3 kg. GENERAL: On admission to the Medical/Surgical floor, the patient appears to be without any acute distress. He does look tired. He is morbidly obese. He does look extremely dry. HEENT: Tympanic membranes were clear bilaterally. Oropharynx was pink with mucosal membranes being notably dry and cracked both of his tongue and lips, but no lesions were noted. NECK: Supple, non-tender with full range of motion. No jugular venous distention. CHEST: Lung sounds are clear bilaterally with no rhonchi, wheezing or rales. CARDIOVASCULAR: Regular rate and rhythm with a grade 2/6 systolic murmur. No rubs or gallops. ABDOMEN: Morbidly obese but soft. No masses or tenderness. Bowel sounds were present. EXTREMITIES: Lower extremities have significant prominence of the thigh with edema and swelling more prominent on the left than the right with some ni edema noted to both legs below the knee with the left showing ongoing erythema and weeping with serous fluid. Pulses are felt with Doppler bilaterally. He does move all extremities ad gladys, except he is having some significant weakness in his left shoulders after a fall. He is not able to abduct but he can move without any difficulty his lower arm flexion. Survey Chief bilaterally were equal. There is notable pain over the shoulder on the anterior aspect with no obvious trauma or signs of dislocation. NEUROLOGIC: Cranial nerves II-XII are grossly intact. Facial features are symmetrical. Extraocular movements are within normal limits. There is no notable nystagmus. He is alert and oriented times three. LABORATORY: CBC on admission showed white count 11,100 with hemoglobin 13.6, hematocrit 44.4, platelet count 106,000. Differential did show a left shift but no bands. Coagulation studies showed a PT of 10.3 with PTT of 36.8. Chemistries showed hyponatremia of 133, potassium 3.6, anion gap was elevated at 19.6, BUN was elevated at 93, creatinine at 4.13, glucose 236. Serum osmolality 203, lactic acid 1.2, calcium 8.7. Liver functions showed elevation of bilirubin to 1.9. AST 77, ALT 61, alkaline phosphatase 144. BNP was elevated at 733. Urinalysis showed just 100 glucose, otherwise within normal limits. Digoxin level was 0.8. RADIOLOGY: Initially in the Emergency Room he had a shoulder x-ray and a humerus x-ray on the left, both without acute findings. ASSESSMENT: 1. Severe dehydration with hyperosmolality and mild hyperglycemia likely secondary to diuretic usage as the patient has increased both his Zaroxolyn and Lasix in efforts to try to decrease his lower extremity edema, also complicated by medications, including Invokana. 2. Acute renal failure secondary to #1 resulting in severe prerenal azotemia exacerbated by medications, including Invokana, gretchen inhibitors and chronic use of NSAIDs in the form of Naprosyn. 3. History of chronic congestive heart failure with last echocardiogram noted to be in September 2016 with left ventricular ejection fraction of 55 to 60% with BNP elevated on admission possibly so due to severe dehydration with no current signs of congestive heart failure exacerbation. 4. Left lower extremity cellulitis secondary to chronic lymphedema and complicated by morbid obesity involving the left thigh and left lower extremity awaiting an ultrasound to further rule out deep venous thrombosis but the patient has a history of a Maximino filter and has not had a deep venous thrombosis in his past history. 5. Chronic atrial fibrillation with a pacemaker implantation in 2004. 6. Mild leukocytosis likely secondary to ongoing cellulitis and possibly exacerbated by severe dehydration with a left shift on admission but no acute signs of sepsis. 7. Mild hyponatremia, although given his degree of dehydration he may be more hyponatremic than he presents which may be contributing to some of his weakness and his fuzzy thinking. 8. Diabetes mellitus on both oral and insulin therapy with fairly well controlled blood sugars. 9. Hypertension on Vasotec and a systolic murmur with last echocardiogram in September 2016 indicating left ventricular ejection fraction of 50 to 55%. 10. Chronic sleep apnea utilizing CPAP at home occasionally, but the patient reports he has not been using it on a regular basis. 11. History of gastric bypass surgery in 2001 with subsequent weight loss from over 500 pounds initially down to 417 with current weight being 199 kg with a body mass index of 53.5. 12. History of acute duodenal anastomotic ulcer hemorrhage in 2009 requiring multiple blood transfusions. 13. Exogenous obesity,. 14. History of [place] filter placement before gastric bypass 15 years previous, but no history of deep venous thrombus. PLAN: The patient is going to be admitted to the Medical/Surgical floor for ongoing treatment of his severe dehydration, acute renal failure and initiation of antibiotic therapy for the underlying cellulitis of the left lower extremity. Given his degree of dehydration and concerns for a possible hyponatremia that is possibly elevated at this point and his history of congestive heart failure, we will initiate fluids with normal saline boluses at 500 per hour for an initial 2 liters and then repeat a BMP to further drive fluid management. After review of his medications, we are going to have to hold his Vasotec, Invokana and certainly any NSAIDs given his degree of renal function decline. In regards to treatment of the cellulitis, he will be on vancomycin per Pharmacy protocol as well as Ceftriaxone. Will resume all of his other medications as appropriate once those have been completely updated and certainly will hold off on any diuretics, including the Zaroxolyn and his Lasix. He will be on an 1800 calorie ADA diet. We will put him on DVT prophylaxis as per protocol based off his renal function. Will anticipate his length of stay to be at least 2 to 3 days as we slowly rehydrate him and follow labs closely. Once he is clinically stable and improved well enough to continue with outpatient management, will discharge with close followup with Dr. Gautam as he has not seen any primary care provider since Dr. Wills retired. I will also order an ultrasound this Thursday of the lower extremities to further rule out any evidence of a DVT. Will put him on insulin sliding scale per protocol and more likely use Levemir long-acting to help further regulate blood sugars. Until the patient can transition to outpatient management, will continue to monitor and treat appropriately. #[id number] [facility]
[2018-04-10] MEDS ORDERED: VANCOMYCIN PER PHARMACY IVPB SCH (11:30)
[2018-04-10] MEDS ORDERED: ACETAMINOPHEN 325 MG TAB PO PRN (11:36)
[2018-04-10] MEDS ORDERED: DEXTROSE 50% 25 GM/50 ML SYG IV PRN (11:36)
[2018-04-10] MEDS ORDERED: GLUCAGON INJ 1 MG VIAL SUBCU PRN (11:36)
[2018-04-10] MEDS ORDERED: SODIUM CHLORIDE 0.9% 100ML 100 ML IVPB ONE ×2 (11:58→19:42)
[2018-04-10] MEDS ORDERED: VANCOMYCIN HCL INJ 500 MG VIAL ONE ×2 (11:58→19:40)
[2018-04-10] MEDS: IV SET AND CAP CHANGE INJ INJ SCH (12:02)
[2018-04-10] MEDS: VANCOMYCIN HCL INJ 500 MG in SODIUM CHLORIDE 0.9% 100ML 100 ML IVPB SCH ×2 (12:03→20:01)
[2018-04-10] MEDS ORDERED: SODIUM CHLORIDE 0.9% 1000ML 1,000 ML IVS ONE ×4 (13:10→19:22)
[2018-04-10] MEDS: INSULIN LISPRO 100 UNITS/ML PEN SUBCU SCH ×2 (16:58→21:09)
[2018-04-10] MEDS: MORPHINE SULFATE INJ 10 MG/ML VIAL IV PRN (17:00)
[2018-04-10] MEDS ORDERED: SUCRALFATE 1 GM TAB PO ONE (19:41)
[2018-04-10] MEDS ORDERED: ENALAPRIL MALEATE 5 MG TAB ONE (19:41)
[2018-04-10] MEDS ORDERED: METOPROLOL TARTRATE 50 MG TAB ONE (19:42)
[2018-04-10] MEDS ORDERED: ASCORBIC ACID 500 MG TAB ONE (19:42)
[2018-04-10] MEDS: SODIUM CHLORIDE 0.9% (FLUSH) 10 ML SYG IV PRN (19:52)
[2018-04-10] MEDS ORDERED: NON-FORMULARY MEDICATION 1 EA MIS (Metoprolol Tartrate [Metoprolol Tartrate] 100 MG) PO SCH (21:00)
[2018-04-10] MEDS ORDERED: OMEPRAZOLE CAP 20 MG CAP PO SCH (21:00)
[2018-04-10] MEDS ORDERED: SUCRALFATE 1 GM PO SCH (21:00)
[2018-04-10] MEDS ORDERED: ASCORBIC ACID 1000 MG PO SCH (21:00)
[2018-04-10] MEDS: ASPIRIN TABLET 325 MG TAB PO SCH (21:06)
[2018-04-10] MEDS: traZODone HCL 50 MG TAB PO SCH (21:07)
[2018-04-11] MEDS ORDERED: SODIUM CHLORIDE 0.9% 1000ML 1,000 ML IVS ONE (00:39)
[2018-04-11] MEDS: KCL 20 MEQ/NS 1,000 ML IVS PRN ×2 (03:08→09:19)
[2018-04-11] MEDS ORDERED: VANCOMYCIN HCL INJ 500 MG VIAL ONE (04:15)
[2018-04-11] MEDS ORDERED: SODIUM CHLORIDE 0.9% 100ML 0 ML IVPB ONE (04:15)
[2018-04-11] MEDS: VANCOMYCIN HCL INJ 500 MG in SODIUM CHLORIDE 0.9% 100ML 100 ML IVPB SCH ×2 (04:28→12:00)
[2018-04-11] MEDS: HYDROcodone 5MG/APAP 325MG 1 EA TAB PO PRN ×3 (04:47→19:45)
[2018-04-11] MEDS: MORPHINE SULFATE INJ 10 MG/ML VIAL IV PRN (05:30)
[2018-04-11] MEDS: SODIUM CHLORIDE 0.9% (FLUSH) 10 ML SYG IV PRN ×2 (05:37→19:49)
[2018-04-11] MEDS ORDERED: NON-FORMULARY MEDICATION 1 EA MIS (Canagliflozin [Invokana] 300 MG) PO SCH (07:00)
[2018-04-11] MEDS ORDERED: SUCRALFATE 1 GM TAB PO ONE (07:32)
[2018-04-11] MEDS ORDERED: FLUoxetine HCL 20 MG CAP ONE (07:33)
[2018-04-11] MEDS ORDERED: ASCORBIC ACID 500 MG TAB ONE (07:33)
[2018-04-11] MEDS: INSULIN LISPRO 100 UNITS/ML PEN SUBCU SCH ×4 (07:45→21:19)
[2018-04-11] MEDS ORDERED: POTASSIUM CHLORIDE 20 MEQ TAB PO ONE (08:42)
[2018-04-11] MEDS ORDERED: ENALAPRIL MALEATE 5 MG TAB PO SCH (09:00)
[2018-04-11] MEDS ORDERED: INSULIN GLARGINE 100 UNIT SC SCH (09:00)
[2018-04-11] MEDS: ASCORBIC ACID 500 MG TAB PO SCH ×2 (09:10→21:03)
[2018-04-11] MEDS: DIGOXIN 0.25 MG TAB PO SCH (09:11)
[2018-04-11] MEDS: FERROUS SULFATE 325 MG TAB PO SCH (09:11)
[2018-04-11] MEDS: FLUoxetine HCL 20 MG CAP PO SCH (09:11)
[2018-04-11] MEDS: ASPIRIN TABLET 325 MG TAB PO SCH ×2 (09:12→21:04)
--- NOTE | 2018-04-11 10:45 | RAD ---
PROCEDURE: XR CHEST 1 VIEW HISTORY: chf COMPARISON: 09/19/2016 TECHNIQUE: Single projection of the chest was done. FINDINGS: There is stable position of the unipolar left-sided pacemaker wire. There is stable cardiomegaly . There is presence of minimal right basilar infiltrate/atelectasis There are no pneumothoraces or pleural effusions. The pulmonary vascularity is normal. IMPRESSION: There is presence of minimal right basilar infiltrate/atelectasis Stable cardiomegaly Electronically signed by: Bill Grajeda MD 04/11/2018 10:44 AM CDT Workstation: [id number]
[2018-04-11] MEDS ORDERED: SODIUM CHLORIDE 0.9% IVPB SCH ×2 (12:00→12:30)
[2018-04-11] MEDS ORDERED: VANCOMYCIN HCL IVPB SCH ×2 (12:00→12:30)
[2018-04-11] MEDS ORDERED: VANCOMYCIN HCL INJ 1,000 MG VIAL IVPB ONE ×2 (12:08→19:30)
[2018-04-11] MEDS ORDERED: SODIUM CHLORIDE 0.9% 250ML 250 ML ONE ×2 (12:09→19:29)
[2018-04-11] MEDS ORDERED: SODIUM CHLORIDE 0.9% 100ML 100 ML IVPB ONE (12:09)
[2018-04-11] MEDS: VANCOMYCIN HCL INJ 1,000 MG in SODIUM CHLORIDE 0.9% 250ML 250 ML IVPB SCH ×2 (12:24→19:50)
[2018-04-11] MEDS ORDERED: VANCOMYCIN HCL INJ 1,000 MG in SODIUM CHLORIDE 0.9% 250ML 250 ML IVPB SCH (12:30)
[2018-04-11] MEDS: SUCRALFATE 1 GM TAB PO SCH (16:25)
[2018-04-11] MEDS: OMEPRAZOLE CAP 20 MG CAP PO SCH (16:25)
[2018-04-11] MEDS: KCL 40MEQ/NS 1,000 ML IVS PRN (16:29)
[2018-04-11] MEDS: METOPROLOL TARTRATE 50 MG TAB PO SCH (21:03)
[2018-04-11] MEDS: traZODone HCL 50 MG TAB PO SCH (21:04)
[2018-04-11] MEDS: ENOXAPARIN SODIUM 40 MG/0.4 ML SYG SUBCU SCH (21:05)
[2018-04-12] MEDS: KCL 40MEQ/NS 1,000 ML IVS PRN ×2 (00:42→09:29)
[2018-04-12] MEDS ORDERED: VANCOMYCIN HCL INJ 1,000 MG VIAL IVPB ONE ×4 (03:50→23:30)
[2018-04-12] MEDS ORDERED: SODIUM CHLORIDE 0.9% 250ML 250 ML ONE ×4 (03:50→23:29)
[2018-04-12] MEDS: VANCOMYCIN HCL INJ 1,000 MG in SODIUM CHLORIDE 0.9% 250ML 250 ML IVPB SCH ×3 (04:06→20:30)
[2018-04-12] MEDS: HYDROcodone 5MG/APAP 325MG 1 EA TAB PO PRN ×4 (04:21→22:00)
[2018-04-12] MEDS: OMEPRAZOLE CAP 20 MG CAP PO SCH ×2 (06:05→17:02)
[2018-04-12] MEDS: SUCRALFATE 1 GM TAB PO SCH ×2 (06:05→17:02)
[2018-04-12] MEDS: INSULIN LISPRO 100 UNITS/ML PEN SUBCU SCH ×4 (07:29→21:11)
--- NOTE | 2018-04-12 08:26 | PN ---
SUPERVISING PHYSICIAN: Sejal Gautam MD DATE: 04/11/18 SUBJECTIVE: The patient reports he is feeling a little bit better, maybe 20% better than when he came in. He has had well over 6 liters of fluid in so far. His left shoulder has been severely painful, limiting his physical efforts and is becoming dangerous for falls given his extreme weight. Decision was to place a Sherwood catheter as well as monitor his I&Os. After several attempts. Coude Sherwood was placed and the patient was without any complaints. He has had no shortness of breath, no chest pains and he has remained afebrile. OBJECTIVE: VITAL SIGNS: T-max 98.3. Pulse 82. Blood pressure 142/75. Respirations 16. Saturation 94% on room air. I&Os are showing positive balance of 4900 with 7800 in and 2900 in, which is not totally accurate as some of his voids have been lost to spills. He has had one bowel movement. GENERAL: The patient appears much less dry than he was at admission. He is in no distress. He is actually very pleasant and alert. CHEST: Lungs clear to auscultation bilaterally, just diminished at both bases. HEART: Regular rate and rhythm with a grade 2 diastolic murmur continues to be heard. ABDOMEN: Morbidly obese, but soft and nontender. No masses or tenderness. Positive bowel sounds. EXTREMITIES: Notable prominence of his thighs with edema and swollen to the lower extremities, more so on the left than the right with notable ni edema, both legs with areas of erythema to the left lower leg with some weeping serous fluid noted, but no obvious areas of abscess formation. Pulses are Doppler and weak on palpation. His left shoulder is reportedly extremely tender. He has very limited range of motion and he is unable to lift his arm or adduct his arm without assistance. There is no obvious trauma, no bruising and distal pulses are strong with equal test analyst. NEUROLOGIC: Alert and oriented times three. LABORATORY: White count down to 10,100. Hemoglobin and hematocrit are fairly stable at and 13.1 and 38.8. Platelet count 101,000. Differential shows a left shift with increased bands today and 1% metamyelocytes compared to admission, chemistries show he has had several BMP, q.4h., for close monitoring of his response to therapy . His creatinine now is down to 2.55, admission of 4.1. BUN is 72 from initial of 93. Electrolytes remain fairly stable, potassium 3.8, sodium slightly low at 134. Anion gap is normalized at 14.8. Blood sugars have been between 166 and 197. Serum osmolality down to 293, calcium 8.7, phosphorous and magnesium are both normal. BNP remains elevated at 843. Vancomycin trough was within target range at 7.1, but is continuing to be followed by pharmacy protocol. RADIOLOGY: Chest x-ray this morning per radiologic interpretation showed minimal right basilar infiltrate, atelectasis and stable cardiomegaly. ASSESSMENT: 1. Severe dehydration with hyperosmolality and hyperglycemia secondary to diuretic usage with the patient increasing both his Zaroxolyn and Lasix in efforts to try to decrease his lower extremity edema, also complicated by other medications, including Invokana, showing good response to aggressive fluid management. 2. Acute renal failure secondary to #1 with severe prerenal azotemic state as well as exacerbated by medications, including Invokana, KIRT inhibitors and chronic use of NSAIDs with the patient showing good response and creatinine returning to baseline with aggressive fluid management. 3. History of chronic congestive heart failure with last echocardiogram noted to be in September 2016 with left ventricular ejection fraction of 55% to 60% with BNP elevated on admission, but no current signs of exacerbation. 4. Left lower extremity cellulitis secondary to chronic lymphedema and complicated by morbid obesity involving the left thigh and left lower extremity awaiting an ultrasound to further rule out deep venous thrombosis with the patient with history of a Maximino filter, but no history of deep venous thrombosis. 5. Chronic atrial fibrillation with a pacemaker implantation on digoxin and controlled ventricular rate. 6. Mild leukocytosis likely secondary to ongoing cellulitis with slight worsening today with increased bands, but no current signs of sepsis. 7. Persistent hyponatremia, likely contributing to his weakness and his fuzzy thinking on admission, improving with IV fluids. 8. Diabetes mellitus on both oral and insulin therapy, fairly well controlled. 9. Hypertension on Vasotec and a systolic murmur with last echocardiogram in September 2016 indicating left ventricular ejection fraction of 55% to 60%. 10. Chronic sleep apnea utilizing CPAP at home occasionally. 11. History of gastric bypass surgery in 2001 with subsequent weight loss from over 500 pounds initially. 12. History of acute duodenal anastomotic ulcer hemorrhage in 2009 requiring multiple blood transfusions with no current signs of acute blood loss. 13. Exogenous obesity. 14. History of [place]ino filter placement prior to gastric bypass 15 years previous, but no history of deep venous thrombus. PLAN: We will continue antibiotics at this point with Rocephin and vancomycin. He has a Sherwood catheter in place now to better monitor his I&Os and I will adjust fluid rates based on current labs and ongoing I&O measurements. He has had well over 8 liters of fluid and continues to be significantly dry, but given his history of some heart failure, I am starting to slow his fluids down in efforts to prevent any exacerbation of congestive heart failure. I have been holding his Vasotec, Invokana and all NSAIDs secondary to his renal function decline which actually is showing improvement with fluids. I have held his Lasix and Zaroxolyn. He is on an 1800 calorie diet and DVT prophylaxis per protocol as well as renal function adjustment. I have ordered an ultrasound in the morning to rule out a lower leg deep venous thrombosis. Hopefully, the patient will show a little more clinical response to the treatment in the next 24 hours and can transition fairly quickly to outpatient management. Outpatient management may certainly require extensive length of time of antibiotic infusions parenterally at which time he will certainly need a PICC line. Until then, we will continue to monitor the patient closely and treat appropriately. #[id number] [facility]
[2018-04-12] MEDS: FLUoxetine HCL 20 MG CAP PO SCH (08:38)
[2018-04-12] MEDS: ASPIRIN TABLET 325 MG TAB PO SCH ×2 (08:38→21:11)
[2018-04-12] MEDS: ASCORBIC ACID 500 MG TAB PO SCH ×2 (08:38→21:11)
[2018-04-12] MEDS: DIGOXIN 0.25 MG TAB PO SCH (08:38)
[2018-04-12] MEDS: FERROUS SULFATE 325 MG TAB PO SCH (08:38)
--- NOTE | 2018-04-12 08:54 | CONS ---
CHIEF COMPLAINT: Left shoulder pain. HISTORY OF PRESENT ILLNESS: Mr. Carballo is a 53-year-old male with a history of a fall that occurred about 6 days ago. Mr. Carballo had the acute onset of pain in the shoulder at that time. He did not seek immediate help and was subsequently admitted about 4 days later secondary to increasing erythema in the lower extremity. Mr. Carballo was admitted for cellulitis. Today, he complains of pain in the left shoulder without radiation or neurologic symptoms. He has no other injury associated with this. Mr. Carballo has difficulty utilizing the arm secondary to pain with range of motion. PAST MEDICAL HISTORY: 1. Diabetes. 2. Hypertension. 3. Morbid obesity. 4. Atrial fibrillation. PAST SURGICAL HISTORY: 1. Pacemaker placement. 2. Gastric bypass. 3. Duodenal anastomosis. 4. [place] filter placement. MEDICATIONS: 1. Zaroxolyn. 2. Desyrel. 3. Ambien 4. Carafate. 5. Prilosec. 6. Metoprolol. 7. Lasix. 8. Prozac. 9. Feosol. 10. Vasotec. 11. Digitek. 12. Invokana. 13. Multidisciplinary different vitamins. 14. Toujeo Solostar. ALLERGIES: NO KNOWN DRUG ALLERGIES. FAMILY HISTORY: None pertinent to today's complaint. SOCIAL HISTORY: The patient drinks on occasion. He does not smoke or use any illicit drugs. PHYSICAL EXAMINATION: VITAL SIGNS: Blood pressure 131/70. Respirations 20. O2 saturation 94% on room air. Weight approximately 200 kg. Temperature is afebrile. MENTAL STATUS: The patient is awake, alert, and is able to give a good history and participate in the physical. The patient is oriented to person, place and time. SKIN: Normal tone and turgor. MUSCULOSKELETAL: The left upper extremity shows difficulty with range of motion in abduction and forward flexion. He is severely tender over the acromioclavicular joint. There is no deformity. Sensation is intact. Decorating Supervisor strength is 5/5. The extremity is warm and well perfused. There is no erythema over the shoulder. IMAGING: X-rays show no evidence of acute bony abnormality. There are some arthritic changes at the acromioclavicular joint. ASSESSMENT: 1. Grade 1 acromioclavicular separation. RECOMMENDATION: At this point, I have suggested he just limit his activities with the shoulder until he has some pain improvement. My suggestion would be to begin a passive range of motion regimen early to prevent stiffness. Should he not improve, consideration could be given to an MRI for further evaluation. He is welcome to followup with us in clinic after discharge. Thank you for allowing us to participate in the care of this patient. [facility][id number] [facility]
--- NOTE | 2018-04-12 10:42 | US ---
EXAM DESCRIPTION: Venous,Lower Extremity LT: ULTRASOUND. CLINICAL HISTORY: cellulitis COMPARISON: Venous duplex ultrasound lower extremity right on the same visit. TECHNIQUE: Sullivan-scale and doppler sonographic evaluation of the deep venous system of the left lower extremity. FINDINGS: Doppler evaluation shows normal color flow and normal phasicity and augmentation of the left common femoral vein, deep femoral vein, proximal and distal left femoral vein, popliteal vein, greater/lesser saphenous vein, and posterior tibial vein. The visualized lower extremity deep veins showed normal occlusion with transducer pressure. Sullivan-scale survey showed no echogenic thrombus within these veins. The mid left femoral vein and the left peroneal veins were not well seen due to patient body habitus and medical status. IMPRESSION: 1. Duplex ultrasound evaluation of the visualized lower extremity deep venous system showing no evidence of thrombosis. 2. The left mid femoral (superficial) vein and the left peroneal veins were not well seen due to patient body habitus and medical condition. Risk of thrombosis in these veins is decreased with other veins of the deep venous system appearing normal. Electronically signed by: Jasbir Vicente MD 04/12/2018 10:41 AM CDT
--- NOTE | 2018-04-12 10:43 | US ---
EXAM DESCRIPTION: Venous,Lower Extremity RT: ULTRASOUND. CLINICAL HISTORY: cellulitis COMPARISON: None Available. TECHNIQUE: Sullivan-scale and doppler sonographic evaluation of the deep venous system of the right lower extremity. FINDINGS: Doppler evaluation shows normal color flow and normal phasicity and augmentation of the right common femoral vein, femoral vein, popliteal vein, greater/lesser saphenous vein, peroneal, anterior and posterior tibial vein. The visualized right lower extremity deep veins showed normal occlusion with transducer pressure. Sullivan-scale survey showed no echogenic thrombus within these veins. IMPRESSION: 1. Duplex ultrasound evaluation of the right lower extremity deep venous system showing no evidence of thrombosis. Electronically signed by: Jasbir Vicente MD 04/12/2018 10:42 AM CDT
[2018-04-12] MEDS ORDERED: ceFAZolin SODIUM 2 GRAMS PREMI 50 ML IVPB ONE ×3 (11:41→23:29)
[2018-04-12] MEDS: ceFAZolin SODIUM 2 GRAMS PREMI 2 GM in PREMIX BAG 1 BAG IVPB SCH ×2 (11:47→20:00)
--- NOTE | 2018-04-12 13:42 | PN ---
SUPERVISING PHYSICIAN: Sejal Gautam MD DATE: 04/12/18 SUBJECTIVE: The patient states he feels a little bit better than he did yesterday. He is complaining of some left shoulder pain which was actually evaluated by Dr. Gill earlier and he was diagnosed with an acromioclavicular separation. However, other than the shoulder pain, the patient is not having any more complaints. OBJECTIVE: VITAL SIGNS: Blood pressure 128/78. Heart rate 61. Respiratory rate 18. Temperature 97.7. Oxygen saturation 95%. GENERAL: Mr. Carballo is a 53-year-old male patient in no active distress currently. NEUROLOGIC: Alert and oriented. LUNGS: A bit diminished in the bases, but otherwise clear to auscultation bilaterally. CARDIOVASCULAR: Regular rate and rhythm. Normal S1, S2. ABDOMEN: Soft, obese. Positive bowel sounds. No tenderness to palpation. GENITOURINARY: Deferred. EXTREMITIES: Lower extremities with still edema and the erythema marking for the cellulitis of the left lower extremity is improved. LABORATORY: White count 9.8, hemoglobin 13.2, hematocrit 40.1, platelet count 131, 12% bands. Chemistry shows improvement in BUN and creatinine to 60 and 1.65 respectively. Bilateral lower extremity ultrasound is negative for deep venous thrombosis. ASSESSMENT: 1. Acute kidney injury secondary to severe dehydration. 2. History of congestive heart failure with no current sign of congestive heart failure exacerbation. 3. Left lower extremity cellulitis secondary to chronic lymphedema. 4. Chronic atrial fibrillation with a pacemaker and digoxin. 5. Leukocytosis, improving. 6. Diabetes mellitus, type 2, well controlled at this time. 7. Hypertension, controlled. 8. Obstructive sleep apnea for which he does not frequently utilize CPAP at home. PLAN: At this time, we will continue current antibiotics. I have actually added Ancef to the vancomycin. Cultures are still pending but have not come back with any definitive bacteria as of yet. I have ordered a sling for the patient's left arm to be immobilized due to acromioclavicular separation. He already has pain medicine ordered. We will continue the current antibiotics and recheck labs tomorrow to ensure we are still going in the right direction. Hopefully he can go home in the next 48 hours or so. #[id number] [facility]
[2018-04-12] MEDS: ENOXAPARIN SODIUM 40 MG/0.4 ML SYG SUBCU SCH (21:10)
[2018-04-12] MEDS: METOPROLOL TARTRATE 50 MG TAB PO SCH (21:11)
[2018-04-12] MEDS: traZODone HCL 50 MG TAB PO SCH (21:11)
[2018-04-13] MEDS: KCL 40MEQ/NS 1,000 ML IVS PRN (00:06)
[2018-04-13] MEDS: HYDROcodone 5MG/APAP 325MG 1 EA TAB PO PRN ×4 (02:23→21:01)
[2018-04-13] MEDS: ceFAZolin SODIUM 2 GRAMS PREMI 2 GM in PREMIX BAG 1 BAG IVPB SCH ×3 (03:39→19:57)
[2018-04-13] MEDS: VANCOMYCIN HCL INJ 1,000 MG in SODIUM CHLORIDE 0.9% 250ML 250 ML IVPB SCH ×3 (04:30→20:57)
[2018-04-13] MEDS: SUCRALFATE 1 GM TAB PO SCH ×2 (06:16→16:20)
[2018-04-13] MEDS: OMEPRAZOLE CAP 20 MG CAP PO SCH ×2 (06:16→16:20)
[2018-04-13] MEDS: INSULIN LISPRO 100 UNITS/ML PEN SUBCU SCH ×4 (07:43→21:06)
[2018-04-13] MEDS: FERROUS SULFATE 325 MG TAB PO SCH (07:45)
[2018-04-13] MEDS: FLUoxetine HCL 20 MG CAP PO SCH (08:37)
[2018-04-13] MEDS: ASPIRIN TABLET 325 MG TAB PO SCH ×2 (08:38→21:00)
[2018-04-13] MEDS: DIGOXIN 0.25 MG TAB PO SCH (08:38)
[2018-04-13] MEDS: ASCORBIC ACID 500 MG TAB PO SCH ×2 (08:38→21:01)
--- NOTE | 2018-04-13 10:57 | PN ---
SUPERVISING PHYSICIAN: Vikram Gautam MD DATE: 04/13/18 SUBJECTIVE: The patient feels good at this time. He has been up moving around the room a little bit more. He does have a sling on his left arm which inhibits mobility to some extent. He states he feels like the redness on the left lower extremity is improved. OBJECTIVE: VITAL SIGNS: Blood pressure 135/72. Heart rate 57. Respiratory rate 18. Temperature 96.3. Oxygen saturation 95%. GENERAL: Mr. Carballo is a 53-year-old male patient in no active distress currently. NEUROLOGIC: Alert and oriented. LUNGS: Diminished in the bases, but otherwise clear to auscultation bilaterally. CARDIOVASCULAR: Regular rate and rhythm. Normal S1, S2. ABDOMEN: Soft, obese. Positive bowel sounds. No tenderness to palpation. GENITOURINARY: Deferred. EXTREMITIES: Lower extremities with persistent edema, improving erythema of the left lower extremity with cellulitis receding from the marked areas. LABORATORY: White count 9.5, hemoglobin 13.6, hematocrit 40.9, platelet count 175,000. No bandemia is noted. Chemistry shows an improvement with BUN and creatinine to 50 and 1.26 respectively. Glucose 168. Cultures still remain negative. ASSESSMENT: 1. Acute kidney injury secondary to severe dehydration. 2. History of congestive heart failure with no acute exacerbation. 3. Left lower extremity cellulitis secondary to chronic lymphedema. 4. Chronic atrial fibrillation with a pacemaker and digoxin. 5. Leukocytosis, improving. 6. Diabetes mellitus, type 2, which is controlled at this time. 7. Hypertension, controlled. 8. Obstructive sleep apnea for which he is pretty much noncompliant with the BIPAP machine. PLAN: Yesterday, we added Ancef to the vancomycin. He appears to be showing improvement in his white count. Still don't have a definitive bacteria for the infectious process, however, given the cellulitis seems to be responding to the current antibiotics. I have also discontinued his IV fluids and will monitor his lab work to insure that the BUN and creatinine remain acceptable. Will also order physical therapy as the patient is having difficulties getting up and down out of bed and has not walked in the hallway given his left arm immobilization. If he remains stable over the next 24 to 48 hours, he can likely be discharged back home. [facility][id number] [facility]
[2018-04-13] MEDS ORDERED: ceFAZolin SODIUM 2 GRAMS PREMI 50 ML IVPB ONE ×2 (11:32→19:55)
[2018-04-13] MEDS ORDERED: SODIUM CHLORIDE 0.9% 250ML 250 ML ONE ×2 (11:33→19:54)
[2018-04-13] MEDS ORDERED: VANCOMYCIN HCL INJ 1,000 MG VIAL IVPB ONE ×2 (11:33→19:56)
[2018-04-13] MEDS: IV SET AND CAP CHANGE INJ INJ SCH (17:21)
[2018-04-13] MEDS: METOPROLOL TARTRATE 50 MG TAB PO SCH (21:00)
[2018-04-13] MEDS: traZODone HCL 50 MG TAB PO SCH (21:00)
[2018-04-13] MEDS: ENOXAPARIN SODIUM 40 MG/0.4 ML SYG SUBCU SCH (21:00)
[2018-04-13] MEDS: ZOLPIDEM TARTRATE 10 MG TAB PO PRN (21:01)
[2018-04-14] MEDS ORDERED: SODIUM CHLORIDE 0.9% 250ML 250 ML ONE (02:48)
[2018-04-14] MEDS ORDERED: ceFAZolin SODIUM 2 GRAMS PREMI 50 ML IVPB ONE (02:49)
[2018-04-14] MEDS ORDERED: VANCOMYCIN HCL INJ 1,000 MG VIAL IVPB ONE (02:49)
[2018-04-14] MEDS: ceFAZolin SODIUM 2 GRAMS PREMI 2 GM in PREMIX BAG 1 BAG IVPB SCH (03:00)
[2018-04-14] MEDS: HYDROcodone 5MG/APAP 325MG 1 EA TAB PO PRN ×5 (03:03→22:32)
[2018-04-14] MEDS: VANCOMYCIN HCL INJ 1,000 MG in SODIUM CHLORIDE 0.9% 250ML 250 ML IVPB SCH (03:32)
[2018-04-14] MEDS: OMEPRAZOLE CAP 20 MG CAP PO SCH ×2 (06:10→16:10)
[2018-04-14] MEDS: SUCRALFATE 1 GM TAB PO SCH ×2 (06:10→16:10)
[2018-04-14] MEDS: INSULIN LISPRO 100 UNITS/ML PEN SUBCU SCH ×4 (07:48→21:03)
[2018-04-14] MEDS: FERROUS SULFATE 325 MG TAB PO SCH (07:52)
[2018-04-14] MEDS: ASCORBIC ACID 500 MG TAB PO SCH ×2 (08:39→21:03)
[2018-04-14] MEDS: DIGOXIN 0.25 MG TAB PO SCH (08:39)
[2018-04-14] MEDS: ASPIRIN TABLET 325 MG TAB PO SCH ×2 (08:39→21:03)
[2018-04-14] MEDS: FLUoxetine HCL 20 MG CAP PO SCH (08:39)
[2018-04-14] MEDS: CEFDINIR 300 MG CAP PO SCH ×2 (10:21→21:02)
[2018-04-14] MEDS: SULFA/TRIMETH 800/160 (DS) TAB 1 EA TAB PO SCH ×2 (10:21→21:37)
--- NOTE | 2018-04-14 14:17 | PN ---
SUPERVISING PHYSICIAN: Sejla Gautam MD DATE: 04/14/18 SUBJECTIVE: The patient is sitting up in bed. He complains of his left arm hurting as well as his left lower leg as well as some swelling. He has had it on a pillow for the last day or so, but presently it is not. Otherwise, he denies any nausea, vomiting, diarrhea, constipation, chest pain or shortness of breath. OBJECTIVE: VITAL SIGNS: Afebrile. Heart rate 61. Blood pressure 161/77. Respiratory rate 18. O2 saturation 93% on room air. RESPIRATORY: Diminished breath sounds throughout. Otherwise, clear to auscultation. CARDIAC: Regular rate and rhythm. GASTROINTESTINAL: Abdomen is soft, nondistended, nontender. Bowel sounds are positive. EXTREMITIES: The area to his left lower leg is pale pink. It is improved since yesterday. His pedal pulses are palpable at +2. There is no drainage noted. NEUROLOGIC: Awake, alert and oriented times three. LABORATORY: WBC 12.6, hemoglobin 12.8, hematocrit 41.8. He continues to have a left shift on differential. Electrolytes are basically within normal limits with the exception of his sodium is slightly low at 133. BUN slightly high at 39. Glucose has run between 164 and 202. All other labs and films have been reviewed via the EMR. ASSESSMENT: 1. Acute kidney injury secondary to severe dehydration. 2. History of congestive heart failure with no acute exacerbation. 3. Left lower extremity cellulitis secondary to chronic lymphedema. 4. Chronic atrial fibrillation with a pacemaker and digoxin. 5. Leukocytosis, improving. 6. Diabetes mellitus, type 2, which is controlled at this time. 7. Hypertension, controlled. 8. Obstructive sleep apnea for which he is pretty much noncompliant with the BiPAP machine. PLAN: We will continue present supportive care. He is improving clinically. Since we have no cultures to review, I will try to change him to Bactrim and cefdinir. Hopefully he can go home on those oral antibiotics. We will monitor his progress over the next couple of days. Dr. Gill is following him for his left acromioclavicular joint separation. I have encouraged him to get up and walk as much as possible. Physical therapy has been working with him. Hopefully he will respond well to the p.o. antibiotics and he can be discharged in the next 24 to 48 hours, but we will continue to monitor the patient closely and follow as needed. Dr. Gautam is the collaborating physician and available for consultation. #[id number] [facility]
[2018-04-14] MEDS: SODIUM CHLORIDE 0.9% (FLUSH) 10 ML SYG IV PRN (21:02)
[2018-04-14] MEDS: ENOXAPARIN SODIUM 40 MG/0.4 ML SYG SUBCU SCH (21:02)
[2018-04-14] MEDS: METOPROLOL TARTRATE 50 MG TAB PO SCH (21:03)
[2018-04-14] MEDS: traZODone HCL 50 MG TAB PO SCH (21:03)
[2018-04-14] MEDS: ZOLPIDEM TARTRATE 10 MG TAB PO PRN (22:32)
[2018-04-15] MEDS: SUCRALFATE 1 GM TAB PO SCH ×2 (06:12→16:52)
[2018-04-15] MEDS: OMEPRAZOLE CAP 20 MG CAP PO SCH ×2 (06:12→16:53)
[2018-04-15] MEDS: INSULIN LISPRO 100 UNITS/ML PEN SUBCU SCH ×4 (08:07→21:06)
[2018-04-15] MEDS: FERROUS SULFATE 325 MG TAB PO SCH (08:08)
[2018-04-15] MEDS: CEFDINIR 300 MG CAP PO SCH ×2 (08:25→21:05)
[2018-04-15] MEDS: FLUoxetine HCL 20 MG CAP PO SCH (08:25)
[2018-04-15] MEDS: ASPIRIN TABLET 325 MG TAB PO SCH ×2 (08:25→21:04)
[2018-04-15] MEDS: HYDROcodone 5MG/APAP 325MG 1 EA TAB PO PRN ×4 (08:25→21:06)
[2018-04-15] MEDS: ASCORBIC ACID 500 MG TAB PO SCH ×2 (08:25→21:05)
[2018-04-15] MEDS: DIGOXIN 0.25 MG TAB PO SCH (08:26)
[2018-04-15] MEDS: SULFA/TRIMETH 800/160 (DS) TAB 1 EA TAB PO SCH ×2 (10:30→21:57)
--- NOTE | 2018-04-15 11:30 | PN ---
SUPERVISING PHYSICIAN: Sejal Gautam MD DATE: 04/15/18 SUBJECTIVE: The patient is sitting up in bed watching television. He feels better than he did yesterday although he could not sleep. He was up until 4 AM and just restless. He has assisted himself up to the side of the bed several times with some difficulty and very slowly, but he is getting up to the side of the bed. We discussed going to a rehab facility and he agreed that may be the best option for him. OBJECTIVE: VITAL SIGNS: Temperature 98. Heart rate 72. Blood pressure 135/78. Respiratory rate 20. O2 saturation 96%. RESPIRATORY: Decreased at the bases, but otherwise, clear to auscultation. CARDIAC: Regular rate and rhythm. GASTROINTESTINAL: He is obese. Abdomen is rounded, soft, nontender. Bowel sounds are positive. EXTREMITIES: The erythema and ecchymosis to the left lower leg have improved. The area has decreased from the marked area. There is minimal warmth and there is no draining or fluctuance. His left arm is in a sling. NEUROLOGIC: Awake, alert and oriented times three. LABORATORY: There are no labs or films to report at this time. ASSESSMENT: 1. Acute kidney injury secondary to severe dehydration. 2. History of congestive heart failure with no acute exacerbation. 3. Left lower extremity cellulitis secondary to chronic lymphedema. 4. Chronic atrial fibrillation with a pacemaker and digoxin. 5. Leukocytosis, improving. 6. Diabetes mellitus, type 2, which is controlled at this time. 7. Hypertension, controlled. 8. Obstructive sleep apnea for which he is pretty much noncompliant with the BiPAP machine. PLAN: We will continue present supportive care. He will continue working with physical therapy. Due to his debility on his left arm as well as his weight, he would most likely benefit from rehab, so we have initiated a referral to [facility] in [place]. I have also ordered some routine lab in the morning. I have added Xanax to help him sleep at night and he requested if Dr. Donaldson, his accounting supervisor, is going to be in town, he is several months behind on getting his pacemaker checked, so I will call Dr. Donaldson' office as he is scheduled to be in [place] tomorrow to see if Dr. Donaldson would mind doing a pacemaker check while he is in the hospital. Otherwise, we will continue to encourage good pulmonary hygiene. We will continue to monitor the patient closely and follow as needed. Dr. Gautam is the collaborating physician and available for consultation. #[id number] [facility]
[2018-04-15] MEDS ORDERED: HYDROcodone 5MG/APAP 325MG 1 EA TAB ONE (12:31)
[2018-04-15] MEDS: traZODone HCL 50 MG TAB PO SCH (21:04)
[2018-04-15] MEDS: METOPROLOL TARTRATE 50 MG TAB PO SCH (21:04)
[2018-04-15] MEDS: ENOXAPARIN SODIUM 40 MG/0.4 ML SYG SUBCU SCH (21:04)
[2018-04-15] MEDS: ALPRAZolam 0.25 MG TAB PO PRN (21:06)
[2018-04-15] MEDS: ZOLPIDEM TARTRATE 10 MG TAB PO PRN (21:57)
[2018-04-16] MEDS: HYDROcodone 5MG/APAP 325MG 1 EA TAB PO PRN ×5 (01:01→20:02)
[2018-04-16] MEDS: OMEPRAZOLE CAP 20 MG CAP PO SCH ×2 (06:32→16:52)
[2018-04-16] MEDS: SUCRALFATE 1 GM TAB PO SCH ×2 (06:32→16:52)
[2018-04-16] MEDS: INSULIN LISPRO 100 UNITS/ML PEN SUBCU SCH ×4 (07:26→21:00)
[2018-04-16] MEDS: FERROUS SULFATE 325 MG TAB PO SCH (07:28)
[2018-04-16] MEDS: ASCORBIC ACID 500 MG TAB PO SCH ×2 (09:33→21:01)
[2018-04-16] MEDS: CEFDINIR 300 MG CAP PO SCH ×2 (09:33→21:01)
[2018-04-16] MEDS: FLUoxetine HCL 20 MG CAP PO SCH (09:33)
[2018-04-16] MEDS: ASPIRIN TABLET 325 MG TAB PO SCH ×2 (09:34→21:01)
[2018-04-16] MEDS: DIGOXIN 0.25 MG TAB PO SCH (09:34)
[2018-04-16] MEDS: SULFA/TRIMETH 800/160 (DS) TAB 1 EA TAB PO SCH ×2 (09:34→21:46)
[2018-04-16] MEDS: IV SET AND CAP CHANGE INJ INJ SCH (13:30)
--- NOTE | 2018-04-16 19:04 | PN ---
DATE: 04/16/18 SUPERVISING PHYSICIAN: Vikram Gautam M.D. SUBJECTIVE: The patient is sitting up in his bed. Has no complaints of shortness of breath, nausea or vomiting. He did say that he was moving slightly better than he had previously, but he still requires quite a bit of assistance. OBJECTIVE: VITAL SIGNS: He is afebrile, heart rate 60, blood pressure 152/90, respiratory rate 18, O2 sat 98%. RESPIRATORY: Essentially clear to auscultation bilaterally. He is diminished at the bases. CARDIAC: Regular rate and rhythm. He is 100% paced on the monitor and storage bin tender. GASTROINTESTINAL: Abdomen is soft, nondistended, non-tender. Bowel sounds are positive. EXTREMITIES: The redness to the left lower extremity continues to improve. There is no drainage or fluctuance. INTEGUMENT: He does have a small skin tear on his right buttocks that he most likely has scraped on the bed. He does have a small skin tear under his left breast from the sling. NEUROLOGIC: He is awake , alert and oriented times three. LABORATORY: WBCs are 12,200 with a stable hemoglobin and hematocrit of 13.2 and 40.7. Neutrophils continue to improve to 79.3%. Blood sugars run between 209 and 245. Sodium 136, potassium 4, chloride 99, carbon dioxide 30, BUN 30, creatinine 1.09, calcium 8.8, magnesium 2.1. All other labs and films have been reviewed via the EMR. ASSESSMENT: 1. Acute kidney injury secondary to severe dehydration that has now normalized. 2. History of congestive heart failure with no acute exacerbation. 3. Left lower extremity cellulitis secondary to chronic lymphedema. 4. Chronic atrial fibrillation with a pacemaker and digoxin. 5. Leukocytosis, improving. 6. Diabetes mellitus, type 2, which is controlled at this time. 7. Hypertension, controlled. 8. Obstructive sleep apnea for which he is pretty much noncompliant with the BiPAP machine. PLAN: We will continue present supportive care. I will hold on labs tomorrow as it will be several days pending transfer to [facility]. He still continues to require quite a bit of assistance due to the immobility of his left arm. Will also make sure the skin tears are dressed appropriately. He has an appointment with Dr. Donaldson on the 04 of May for a pacemaker check. Continue working with Physical Therapy for strengthening and conditioning. Will followup as needed. Dr. Gautam is the collaborating physician available for consultation. #[id number] [facility]
[2018-04-16] MEDS: ENOXAPARIN SODIUM 40 MG/0.4 ML SYG SUBCU SCH (20:59)
[2018-04-16] MEDS: traZODone HCL 50 MG TAB PO SCH (21:01)
[2018-04-16] MEDS: ALPRAZolam 0.25 MG TAB PO PRN (21:02)
[2018-04-16] MEDS: METOPROLOL TARTRATE 50 MG TAB PO SCH (21:08)
[2018-04-16] MEDS: ZOLPIDEM TARTRATE 10 MG TAB PO PRN (21:46)
[2018-04-17] MEDS: HYDROcodone 5MG/APAP 325MG 1 EA TAB PO PRN ×4 (00:43→21:30)
[2018-04-17] MEDS: SUCRALFATE 1 GM TAB PO SCH ×2 (06:33→17:08)
[2018-04-17] MEDS: OMEPRAZOLE CAP 20 MG CAP PO SCH ×2 (06:33→17:09)
[2018-04-17] MEDS: INSULIN LISPRO 100 UNITS/ML PEN SUBCU SCH ×4 (07:33→21:08)
[2018-04-17] MEDS: FERROUS SULFATE 325 MG TAB PO SCH (07:40)
[2018-04-17] MEDS ORDERED: MAGNESIUM HYDROXIDE 30 ML UD PO ONE (10:04)
[2018-04-17] MEDS: HYDROCORT 2.5% CRM (ANUSOL HC) 30 GM TUBE PR PRN ×2 (10:09→18:45)
[2018-04-17] MEDS: ASCORBIC ACID 500 MG TAB PO SCH ×2 (11:00→21:10)
[2018-04-17] MEDS: SULFA/TRIMETH 800/160 (DS) TAB 1 EA TAB PO SCH ×2 (11:00→22:19)
[2018-04-17] MEDS: DIGOXIN 0.25 MG TAB PO SCH (11:00)
[2018-04-17] MEDS: FLUoxetine HCL 20 MG CAP PO SCH (11:00)
[2018-04-17] MEDS: CEFDINIR 300 MG CAP PO SCH ×2 (11:00→21:10)
[2018-04-17] MEDS: ASPIRIN TABLET 325 MG TAB PO SCH ×2 (11:00→21:08)
--- NOTE | 2018-04-17 11:58 | PN ---
DATE: 04/17/18 SUPERVISING PHYSICIAN: Vikram Gautam M.D. SUBJECTIVE: The patient is sitting up in bed. He just finished his physical therapy and has been up in the chair for several hours. Physical therapist reported that he did fairly well but still requires assistance. He does complain of some hardened stool although he did have a bowel movement this morning. His nurse reported that he does have a fairly large hemorrhoid and his stool is hard. The patient reports he has had a history of hemorrhoids as well as constipation. He denies any shortness of breath, nausea or vomiting, chest pain. OBJECTIVE: VITAL SIGNS: He is afebrile, heart rate 62, blood pressure 157/85, respiratory rate 18, O2 sat 97% on room air. RESPIRATORY: Essentially clear to auscultation bilaterally. Somewhat distant breath sounds. CARDIAC: Regular rate and rhythm. GASTROINTESTINAL: Abdomen is soft. He is obese. It is rounded. It is nondistended. Bowel sounds are positive. EXTREMITIES: The left lower area of cellulitis continues to improve, erythema continues to recede. There is no drainage or fluctuance. Bilateral pedal pulses are palpable at +2. NEUROLOGIC: He is awake, alert and oriented times three. LABORATORY: Blood glucoses have run between 209 and 244. All other labs and films have been reviewed via the EMR. ASSESSMENT: 1. Acute kidney injury secondary to severe dehydration that has now normalized. 2. Left lower extremity cellulitis secondary to chronic lymphedema that continues to improve. 3. History of congestive heart failure with no signs or symptoms of acute exacerbation. 4. Chronic atrial fibrillation with a pacemaker and on digoxin. 5. Leukocytosis that is improving. 6. Diabetes mellitus, type 2, which is running slightly high during this hospital stay. 7. Hypertension, well controlled. 8. Obstructive sleep apnea for which he is noncompliant with the BiPAP machine. 9. Chronic constipation with external hemorrhoids. PLAN: We will continue present supportive care. His blood sugars have been running high. For some reason he had not been started on his Toujeo long- acting insulin. We will either get Levemir started or I will get some Toujeo to cover for his slightly elevated blood sugars. I have also ordered some Anusol. He will receive 1 dose of Milk of Magnesia and I will give him daily MiraLAX. I will order lab in the morning. Again, we are awaiting approval for him to go to a rehab facility in [place]. Have not heard acceptance from his insurance policy. Will continue to monitor him closely and follow as needed. #[id number] [facility]
[2018-04-17] MEDS ORDERED: MAGNESIUM HYDROXIDE 30 ML UD ONE (13:10)
[2018-04-17] MEDS: POLYETHYLENE GLYCOL 3350 17 GM PCKT PO SCH (13:13)
[2018-04-17] MEDS ORDERED: ONDANSETRON INJ 4 MG/2 ML VIAL IV PRN (19:57)
[2018-04-17] MEDS: SODIUM CHLORIDE 0.9% (FLUSH) 10 ML SYG IV PRN (20:09)
[2018-04-17] MEDS ORDERED: INSULIN DETEMIR 100 UNITS/ML PEN SUBCU SCH (21:00)
[2018-04-17] MEDS: traZODone HCL 50 MG TAB PO SCH (21:08)
[2018-04-17] MEDS: ENOXAPARIN SODIUM 40 MG/0.4 ML SYG SUBCU SCH (21:09)
[2018-04-17] MEDS: METOPROLOL TARTRATE 50 MG TAB PO SCH (21:09)
[2018-04-17] MEDS: ZOLPIDEM TARTRATE 10 MG TAB PO PRN (21:30)
[2018-04-17] MEDS: NYSTATIN POWDER 15GM BTTL TOP SCH (22:19)
[2018-04-18] MEDS: OMEPRAZOLE CAP 20 MG CAP PO SCH ×2 (06:31→17:00)
[2018-04-18] MEDS: SUCRALFATE 1 GM TAB PO SCH ×2 (06:31→17:00)
[2018-04-18] MEDS: HYDROcodone 5MG/APAP 325MG 1 EA TAB PO PRN ×4 (06:37→21:19)
[2018-04-18] MEDS: INSULIN LISPRO 100 UNITS/ML PEN SUBCU SCH ×4 (07:54→21:21)
[2018-04-18] MEDS: FERROUS SULFATE 325 MG TAB PO SCH (07:56)
[2018-04-18] MEDS: CEFDINIR 300 MG CAP PO SCH ×2 (08:53→21:19)
[2018-04-18] MEDS: POLYETHYLENE GLYCOL 3350 17 GM PCKT PO SCH (08:53)
[2018-04-18] MEDS: ASPIRIN TABLET 325 MG TAB PO SCH ×2 (08:53→21:20)
[2018-04-18] MEDS: SULFA/TRIMETH 800/160 (DS) TAB 1 EA TAB PO SCH ×2 (08:54→21:46)
[2018-04-18] MEDS: ASCORBIC ACID 500 MG TAB PO SCH ×2 (08:54→21:20)
[2018-04-18] MEDS: NYSTATIN POWDER 15GM BTTL TOP SCH ×4 (08:54→21:46)
[2018-04-18] MEDS: DIGOXIN 0.25 MG TAB PO SCH (08:54)
[2018-04-18] MEDS: FLUoxetine HCL 20 MG CAP PO SCH (08:54)
[2018-04-18] MEDS: INSULIN GLARGINE SUBCU SCH (08:57)
--- NOTE | 2018-04-18 16:32 | PN ---
DATE: 04/18/18 SUPERVISING PHYSICIAN: Vikram Gautam M.D. SUBJECTIVE: The patient is sitting up in bed talking to family members. He feels pretty good. He is still having a difficult time doing thing for himself but feels like he is getting slightly more independent. He has only asked for pain medications several times over the last 24 hours. Otherwise, no complaints of chest pain, shortness of breath, nausea, vomiting, diarrhea or constipation. OBJECTIVE: VITAL SIGNS: Temperature 98, heart rate 61, blood pressure 132/70, respiratory rate 8, O2 sat 97% on room air. RESPIRATORY: Essentially clear to auscultation bilaterally but diminished throughout. CARDIAC: Regular rate and rhythm. GASTROINTESTINAL: Abdomen is soft, nondistended, non-tender. Bowel sounds are positive. EXTREMITIES: The left lower extremity is again slightly better than previously. There is no drainage or fluctuance, minimal erythema and edema. Bilateral pedal pulses are palpable. NEUROLOGIC: He is awake, alert and oriented times three. LABORATORY: WBC normal at 9.4 with hemoglobin of 12.8 and hematocrit 38.9. Blood glucoses have run between 202 and 223. Sodium slightly low at 132 with potassium 4.6. Carbon dioxide 26, chloride 98, BUN 24, creatinine 1.06. Alkaline phosphatase 135. All other labs and films have been reviewed via the EMR. ASSESSMENT: 1. Acute kidney injury secondary to severe dehydration that has now normalized. 2. Left lower extremity cellulitis secondary to chronic lymphedema that continues to improve. 3. History of congestive heart failure with no signs or symptoms of acute exacerbation. 4. Chronic atrial fibrillation with a pacemaker and on digoxin. 5. Leukocytosis that is normalized. . 6. Diabetes mellitus, type 2, which is running slightly high during this hospital stay. 7. Hypertension, well controlled. 8. Obstructive sleep apnea for which he is noncompliant with the BiPAP machine. 9. Chronic constipation with external hemorrhoids. PLAN: We will continue present supportive care. We are awaiting approval from [facility] for [facility]. His Sherwood has been discontinued and is voiding without difficulty. His Toujeo long-acting insulin has been increased to 50 units daily. We will monitor that closely as he normally takes 100 units daily. I will hold on lab as we are awaiting transfer to a rehabilitation facility. Hopefully that will be tomorrow, otherwise we will monitor him closely and follow as needed.. #[id number] [facility]
[2018-04-18] MEDS: traZODone HCL 50 MG TAB PO SCH (21:20)
[2018-04-18] MEDS: ALPRAZolam 0.25 MG TAB PO PRN (21:20)
[2018-04-18] MEDS: METOPROLOL TARTRATE 50 MG TAB PO SCH (21:20)
[2018-04-18] MEDS: ENOXAPARIN SODIUM 40 MG/0.4 ML SYG SUBCU SCH (21:45)
[2018-04-18] MEDS: ZOLPIDEM TARTRATE 10 MG TAB PO PRN (21:46)
[2018-04-19] MEDS: HYDROcodone 5MG/APAP 325MG 1 EA TAB PO PRN ×4 (04:00→20:42)
[2018-04-19] MEDS: OMEPRAZOLE CAP 20 MG CAP PO SCH ×2 (06:12→16:29)
[2018-04-19] MEDS: SUCRALFATE 1 GM TAB PO SCH ×2 (06:12→16:29)
[2018-04-19] MEDS: INSULIN LISPRO 100 UNITS/ML PEN SUBCU SCH ×4 (07:43→21:00)
[2018-04-19] MEDS: FLUoxetine HCL 20 MG CAP PO SCH (07:57)
[2018-04-19] MEDS: DIGOXIN 0.25 MG TAB PO SCH (07:57)
[2018-04-19] MEDS: ASCORBIC ACID 500 MG TAB PO SCH ×2 (07:58→20:43)
[2018-04-19] MEDS: ASPIRIN TABLET 325 MG TAB PO SCH ×2 (07:58→20:41)
[2018-04-19] MEDS: NYSTATIN POWDER 15GM BTTL TOP SCH ×4 (07:58→20:44)
[2018-04-19] MEDS: CEFDINIR 300 MG CAP PO SCH ×2 (07:58→20:43)
[2018-04-19] MEDS: FERROUS SULFATE 325 MG TAB PO SCH (07:58)
[2018-04-19] MEDS: POLYETHYLENE GLYCOL 3350 17 GM PCKT PO SCH (07:58)
[2018-04-19] MEDS: INSULIN GLARGINE SUBCU SCH (08:00)
[2018-04-19] MEDS: SULFA/TRIMETH 800/160 (DS) TAB 1 EA TAB PO SCH ×2 (11:00→22:20)
[2018-04-19] MEDS: IV SET AND CAP CHANGE INJ INJ SCH (13:57)
[2018-04-19] MEDS: ALPRAZolam 0.25 MG TAB PO PRN (20:43)
[2018-04-19] MEDS: METOPROLOL TARTRATE 50 MG TAB PO SCH (20:43)
[2018-04-19] MEDS: traZODone HCL 50 MG TAB PO SCH (20:43)
[2018-04-19] MEDS: ENOXAPARIN SODIUM 40 MG/0.4 ML SYG SUBCU SCH (20:44)
[2018-04-19] MEDS: ZOLPIDEM TARTRATE 10 MG TAB PO PRN (22:21)
--- NOTE | 2018-04-19 23:10 | PN ---
DATE: 04/19/18 SUPERVISING PHYSICIAN: Vikram Gautam M.D. SUBJECTIVE: The patient is resting in bed. He notes he is feeling good. He has been able to actually get up and work with some physical therapy but still has a significant amount of pain in his shoulder. He has had no shortness of breath, nausea, vomiting, diarrhea or constipation. OBJECTIVE: VITAL SIGNS: He remains afebrile, temperature 99.2, pulse 59, blood pressure 167/89, respirations 16 to 22, satting 93% on room air. I's and O's show a positive balance of 560 with 1635 in, 1075 out. Weight is 229 kg. GENERAL: The patient is comfortable. Appears to be in no acute distress. CHEST : Lungs are clear to auscultation. HEART: Regular rate and rhythm. ABDOMEN: Obese but soft, non-tender. Positive bowel sounds. EXTREMITIES: Show continued lymphedema bilaterally with the left leg showing some mild erythema but much improved in regards to cellulitis. There is no weeping or open wounds or any signs of abscess. Pulses distally are strong bilaterally. Capillary refill is brisk. NEUROLOGIC: He is alert and oriented times three. RADIOLOGY: No additional radiographic studies today. LABORATORY: No additional laboratory studies today other than his blood sugars that have been between 170, 153 and 185. ASSESSMENT: 1. Acute kidney injury secondary to severe dehydration that has now normalized after aggressive fluid management. 2. Left lower extremity cellulitis likely due to chronic lymphedema showing improvement with continued p.o. antibiotics. 3. History of congestive heart failure with no signs or symptoms of acute exacerbation and no current echocardiogram available for review. 4. Chronic atrial fibrillation with a pacemaker and on digoxin with a paced rhythm. 5. Leukocytosis that is normalized secondary to severe dehydration, stress response and ongoing cellulitis. 6. Diabetes mellitus, type 2 showing to be stable. 7. Hypertension, well controlled. 8. Obstructive sleep apnea for which he is noncompliant with the BiPAP and CPAP machine. 9. Chronic constipation with external hemorrhoids, ongoing. PLAN: Will continue awaiting final placement at [facility] once approved by [facility]. He continues on antibiotics p.o. at this time with Bactrim and Cefdinir. He will continue to work with Physical Therapy until discharged. At discharge, given his blood sugar has been well controlled with decreased to Toujeo 50 units daily, will continue with those at discharge. He normally does take 100 units daily. No labs or x-rays will be repeated tomorrow as he will hopefully be able to discharge in the morning. Until that time will continue to monitor and treat appropriately. #[id number] [facility]
[2018-04-20] MEDS: HYDROcodone 5MG/APAP 325MG 1 EA TAB PO PRN ×4 (04:46→21:10)
[2018-04-20] MEDS: OMEPRAZOLE CAP 20 MG CAP PO SCH ×2 (06:12→15:54)
[2018-04-20] MEDS: SUCRALFATE 1 GM TAB PO SCH ×2 (06:12→15:54)
[2018-04-20] MEDS: INSULIN LISPRO 100 UNITS/ML PEN SUBCU SCH ×4 (07:33→21:03)
[2018-04-20] MEDS: FERROUS SULFATE 325 MG TAB PO SCH (07:34)
[2018-04-20] MEDS: INSULIN GLARGINE SUBCU SCH (09:20)
[2018-04-20] MEDS: POLYETHYLENE GLYCOL 3350 17 GM PCKT PO SCH (09:21)
[2018-04-20] MEDS: CEFDINIR 300 MG CAP PO SCH ×2 (09:21→21:11)
[2018-04-20] MEDS: DIGOXIN 0.25 MG TAB PO SCH (09:21)
[2018-04-20] MEDS: SULFA/TRIMETH 800/160 (DS) TAB 1 EA TAB PO SCH ×2 (09:21→21:11)
[2018-04-20] MEDS: NYSTATIN POWDER 15GM BTTL TOP SCH ×4 (09:21→21:18)
[2018-04-20] MEDS: ASPIRIN TABLET 325 MG TAB PO SCH ×2 (09:21→21:11)
[2018-04-20] MEDS: ASCORBIC ACID 500 MG TAB PO SCH ×2 (09:21→21:11)
[2018-04-20] MEDS: FLUoxetine HCL 20 MG CAP PO SCH (09:21)
[2018-04-20] MEDS: METOPROLOL TARTRATE 50 MG TAB PO SCH (21:10)
[2018-04-20] MEDS: traZODone HCL 50 MG TAB PO SCH (21:11)
[2018-04-20] MEDS: ENOXAPARIN SODIUM 40 MG/0.4 ML SYG SUBCU SCH (21:11)
--- NOTE | 2018-04-20 21:54 | PN ---
DATE: 04/20/18 SUPERVISING PHYSICIAN: Vikram Gautam M.D. SUBJECTIVE: The patient continues to do well. He is still having some areas of weakness and needs assistance and ongoing continued physical therapy, but he has had no further complaints. OBJECTIVE: VITAL SIGNS: He remains afebrile, temperature 98.4, pulse 63, blood pressure 165/82, respirations 16, satting 97% on room air. LABORATORY: No new laboratory other than blood sugars which have ranged between 170 and 185. No microbiology. No radiology. ASSESSMENT: 1. Acute kidney injury secondary to severe dehydration that has now normalized after aggressive fluid management. 2. Left lower extremity cellulitis likely due to chronic lymphedema showing improvement with continued p.o. antibiotics. 3. History of congestive heart failure with no signs or symptoms of acute exacerbation and no current echocardiogram available for review. 4. Chronic atrial fibrillation with a pacemaker and on digoxin with a paced rhythm. 5. Leukocytosis that is normalized secondary to severe dehydration, stress response and ongoing cellulitis. 6. Diabetes mellitus, type 2 showing to be stable. 7. Hypertension, well controlled. 8. Obstructive sleep apnea for which he is noncompliant with the BiPAP and CPAP machine. 9. Chronic constipation with external hemorrhoids, ongoing. PLAN: [facility] today has gotten word from [facility] that he has been denied admission. At this point will talk to him about going to [facility] for ongoing physical therapy. I did discuss with Physical Therapy and they feel that he is not safe enough at this point to go home, therefore hopefully will be able to get the patient accepted to [facility] for ongoing physical therapy. He continues on p.o. antibiotics including Bactrim and Cefdinir. Hopefully will be able to discharge tomorrow. Until then continue to monitor and treat appropriately. [facility][id number] [facility]
[2018-04-20] MEDS: ALPRAZolam 0.25 MG TAB PO PRN (22:57)
[2018-04-20] MEDS: ZOLPIDEM TARTRATE 10 MG TAB PO PRN (22:58)
[2018-04-21] MEDS: HYDROcodone 5MG/APAP 325MG 1 EA TAB PO PRN ×4 (04:03→20:56)
[2018-04-21] MEDS: INSULIN LISPRO 100 UNITS/ML PEN SUBCU SCH ×4 (07:22→20:56)
[2018-04-21] MEDS: SUCRALFATE 1 GM TAB PO SCH ×2 (07:30→16:04)
[2018-04-21] MEDS: OMEPRAZOLE CAP 20 MG CAP PO SCH ×2 (07:30→16:04)
[2018-04-21] MEDS: FERROUS SULFATE 325 MG TAB PO SCH (07:30)
[2018-04-21] MEDS: INSULIN GLARGINE SUBCU SCH (08:36)
[2018-04-21] MEDS: POLYETHYLENE GLYCOL 3350 17 GM PCKT PO SCH (08:37)
[2018-04-21] MEDS: ASPIRIN TABLET 325 MG TAB PO SCH ×2 (08:38→20:49)
[2018-04-21] MEDS: DIGOXIN 0.25 MG TAB PO SCH (08:38)
[2018-04-21] MEDS: FLUoxetine HCL 20 MG CAP PO SCH (08:38)
[2018-04-21] MEDS: HYDROCORT 2.5% CRM (ANUSOL HC) 30 GM TUBE PR PRN ×2 (08:38→17:28)
[2018-04-21] MEDS: ASCORBIC ACID 500 MG TAB PO SCH ×2 (08:39→20:51)
[2018-04-21] MEDS: NYSTATIN POWDER 15GM BTTL TOP SCH ×4 (08:39→20:51)
[2018-04-21] MEDS: CEFDINIR 300 MG CAP PO SCH ×2 (08:39→20:51)
[2018-04-21] MEDS ORDERED: FUROSEMIDE 40 MG TAB ONE (08:55)
[2018-04-21] MEDS ORDERED: metOLazone 2.5 MG TAB PO ONE (08:56)
[2018-04-21] MEDS: FUROSEMIDE 40 MG TAB PO SCH ×2 (09:20→20:50)
[2018-04-21] MEDS: SULFA/TRIMETH 800/160 (DS) TAB 1 EA TAB PO SCH ×2 (09:21→21:57)
[2018-04-21] MEDS ORDERED: metOLazone 2.5 MG TAB PO SCH (09:30)
[2018-04-21] MEDS: BIFIDOBACTERIUM INFANTIS 4 MG CAP PO SCH (11:21)
[2018-04-21] MEDS: KETOCONAZOLE CREAM 15 GM TUBE TOP SCH ×2 (16:03→20:51)
[2018-04-21] MEDS ORDERED: NON-FORMULARY MEDICATION 1 EA MIS (Potassium Chloride [Potassium Chloride Er] 10 MEQ) PO SCH (17:00)
[2018-04-21] MEDS: POTASSIUM CHLORIDE 10 MEQ TAB PO SCH (17:27)
[2018-04-21] MEDS: traZODone HCL 50 MG TAB PO SCH (20:50)
[2018-04-21] MEDS: ENOXAPARIN SODIUM 40 MG/0.4 ML SYG SUBCU SCH (20:51)
[2018-04-21] MEDS: METOPROLOL TARTRATE 50 MG TAB PO SCH (20:51)
[2018-04-21] MEDS: ALPRAZolam 0.25 MG TAB PO PRN (22:09)
[2018-04-21] MEDS: ZOLPIDEM TARTRATE 10 MG TAB PO PRN (22:09)
[2018-04-22] MEDS: HYDROcodone 5MG/APAP 325MG 1 EA TAB PO PRN ×3 (03:22→14:14)
[2018-04-22] MEDS: SUCRALFATE 1 GM TAB PO SCH (06:04)
[2018-04-22] MEDS: OMEPRAZOLE CAP 20 MG CAP PO SCH (06:04)
[2018-04-22] MEDS: FERROUS SULFATE 325 MG TAB PO SCH (07:51)
[2018-04-22] MEDS: POTASSIUM CHLORIDE 10 MEQ TAB PO SCH (07:51)
[2018-04-22] MEDS: INSULIN LISPRO 100 UNITS/ML PEN SUBCU SCH ×2 (07:52→12:36)
--- NOTE | 2018-04-22 08:32 | PN ---
SUPERVISING PHYSICIAN: Sejal Gautam M.D. DATE: 04/21/18 SUBJECTIVE: The patient has been doing a little bit better today, walking a bit further with physical therapy. He was accepted late this afternoon to [facility], however, [facility] has done another referral and is pending for tomorrow morning. He has not had any further complaints. OBJECTIVE: VITAL SIGNS: Temperature 99.0. Pulse 64. Blood pressure 148/84. Respirations 20. Saturation 96% on room air. I&Os show positive balance of 570 with 2220 in , 1650 out. GENERAL: The patient appears to be without any distress. He is alert. CHEST: Lungs clear to auscultation. HEART: Regular rate and rhythm. ABDOMEN: Soft, nontender. Positive bowel sounds. GENITOURINARY: There is a large area of intertrigo underneath the panniculus and perineal area that has not been responding well to Nystatin and is excoriated. EXTREMITIES: There is some mild, nonpitting edema bilaterally and continued lymphedema. The left leg is improving without any new areas of erythema or drainage NEUROLOGIC: Alert and oriented times 3. LABORATORY: Blood sugars remain stable. No other laboratories were collected. RADIOLOGY: No additional studies were collected. ASSESSMENT: 1. Acute kidney injury secondary to severe dehydration from over aggressive fluid management and diuretics at home, showing improvement with fluids. 2. Left lower extremity cellulitis due to chronic lymphedema, showing improvement after initiation of antibiotics and continued p.o. antibiotics. 3. Significant amount of intertrigo to the perineum and panniculus. 4. History of congestive heart failure with no signs of exacerbation and no current echocardiogram available for review. 5. Chronic atrial fibrillation with a pacemaker and on digoxin with a paced rhythm. 6. Leukocytosis, normalized, secondary to severe dehydration, stress response and ongoing healing cellulitis. 7. Diabetes mellitus, type 2, stable. 8. Hypertension, stable. 9. Obstructive sleep apnea for which he is noncompliant with the BiPAP and CPAP machine. 10. Chronic constipation with external hemorrhoids, ongoing. PLAN: The patient was able to function a little more independently with physical therapy this morning. He is still having a little issue with his activities of daily living. He was reevaluated by [facility] today as well as accepted to [facility], however, his choice would be to go to [facility] if possible. If not tomorrow morning to [facility]. He will need pain management with [place]. His medications will need to be adjusted. I have changed his Zaroxolyn to 5 mg daily. I instructed him to take it at least 20 to 30 minutes prior to his morning dose of Lasix, which is 40 mg. I also encouraged him to split his Lasix up, which he normally takes 80 mg, and take 40 mg initially in the morning after the Zaroxolyn and then 40 mg later in the afternoon or in the morning if he chooses to take both. He has been off his Invokana since admission and is doing well. His Toujeo dosage remains at 50 subcutaneously daily. I did start him on some ketoconazole cream for the intertrigo around is panniculus and perineal area as Nystatin was not giving any significant amount of improvement. He continues to work with physical therapy and is slowly improving on his activities of daily living. He has been without a saline lock in efforts to help him further with activities of daily living in efforts to get him to discharged either to [facility], home with home healthy or possibly tomorrow to [facility]. Again, [facility] has accepted him, but [facility] has reevaluated today and appeal is in process. Until ultimate decision for discharge, we will continue to monitor the patient closely and treat appropriately. #[id number] [facility]
[2018-04-22] MEDS: metOLazone 2.5 MG TAB PO SCH ×2 (09:10→09:15)
[2018-04-22] MEDS: FUROSEMIDE 40 MG TAB PO SCH (09:10)
[2018-04-22] MEDS: BIFIDOBACTERIUM INFANTIS 4 MG CAP PO SCH (09:12)
[2018-04-22] MEDS: SULFA/TRIMETH 800/160 (DS) TAB 1 EA TAB PO SCH (09:13)
[2018-04-22] MEDS: ASPIRIN TABLET 325 MG TAB PO SCH (09:13)
[2018-04-22] MEDS: ASCORBIC ACID 500 MG TAB PO SCH (09:13)
[2018-04-22] MEDS: FLUoxetine HCL 20 MG CAP PO SCH (09:13)
[2018-04-22] MEDS: DIGOXIN 0.25 MG TAB PO SCH (09:13)
[2018-04-22] MEDS: CEFDINIR 300 MG CAP PO SCH (09:14)
[2018-04-22] MEDS: POLYETHYLENE GLYCOL 3350 17 GM PCKT PO SCH (09:14)
[2018-04-22] MEDS: NYSTATIN POWDER 15GM BTTL TOP SCH ×2 (09:14→12:37)
[2018-04-22] MEDS: INSULIN GLARGINE SUBCU SCH (09:30)
[2018-04-22] MEDS: KETOCONAZOLE CREAM 15 GM TUBE TOP SCH (09:30)
[2018-04-22] MEDS ORDERED: FLUCONAZOLE 100 MG TAB PO SCH (12:30)
[2018-04-22] MEDS: IV SET AND CAP CHANGE INJ INJ SCH (12:36)
[2018-04-22] MEDS ORDERED: INFLUENZA VIRUS VACC (ADULT) 0.5 ML SYG IM ONE (14:14)
[2018-04-22] MEDS ORDERED: PNEUMOCOCCAL VACCINE 0.5 ML INJ IM ONE (14:15)
[2018-04-22 15:31] VITALS: BP 129/71; TEMP 97.2; O2SAT 97
--- NOTE | 2018-04-24 21:33 | DS ---
SUPERVISING PHYSICIAN: Vikram Gautam M.D. DISCHARGE DIAGNOSIS: 1. Acute kidney injury secondary to severe dehydration from over aggressive fluid management and diuretics at home, showing improvement with fluids. 2. Left lower extremity cellulitis due to chronic lymphedema, showing improvement after initiation of antibiotics and continued p.o. antibiotics. 3. Significant amount of intertrigo to the perineum and panniculus. 4. History of congestive heart failure with no signs of exacerbation and no current echocardiogram available for review. 5. Chronic atrial fibrillation with a pacemaker and on digoxin with a paced rhythm. 6. Leukocytosis, normalized, secondary to severe dehydration, stress response and ongoing healing cellulitis. 7. Diabetes mellitus, type 2, stable. 8. Hypertension, stable. 9. Obstructive sleep apnea for which he is noncompliant with the BiPAP and CPAP machine. 10. Chronic constipation with external hemorrhoids, ongoing. HISTORY OF PRESENT ILLNESS: This is a 53 year-old male patient who presented to the Emergency Room via EMS with left lower leg cellulitis. He reported that he had 3 previous episodes of cellulitis since January. He has chronic lymphedema resulting in chronic lower extremity swelling. In the past he has just taken Keflex and it gets better, but he has not been able to see his doctor since Dr. Wills retired. He also notes that it started worsening since the Thursday prior to his admission and it continued to worsen. On the day of admission, he had some subjective fever with more symptoms and at that time called 911. He weighs over 400 pounds and has in the past had a surgical weight loss surgery with gastric bypass. He notes that he fell yesterday and he landed on his buttocks. In attempting to try to get he injured his left shoulder. He does have a history of diabetes mellitus, hypertension as well as congestive heart failure. On laboratory studies in the E. R. showed that he had a significant decrease in renal function from baseline with a creatinine of 4.13 with his baseline creatinine in the past of 1.3 to 1.6. BUN was 99. He had been trying to take in plenty of fluids but he had become significantly dehydrated. He denied any nausea, vomiting or diarrhea. White count showed mild leukocytosis of 11,100 but there was a left shift. He did take Naprosyn twice daily for generalized body aches and pains, specifically his knee pain. He was admitted to the hospital for lower leg cellulitis and acute renal failure. HOSPITAL COURSE: During his hospital stay, his Zaroxolyn and Lasix were discontinued as well as his Invokana and his Naprosyn. He was cautioned against the use of chronic NSAIDs. He was started on some fluids as well as vancomycin per Pharmacy protocol and Ceftriaxone. All diuretics were held. He was rehydrated. He was placed on sliding scale insulin and a.c. and h.s. Accu- Cheks. His white count went up and down over the next few days as high as 12, 600 but stabilized today down to 9.4. Hemoglobin and hematocrit were stabilized around 13 and 40. His long acting insulin was restarted except it was titrated up to only half the dosing. At home he was taking 100 units of Toujeo and he is now taking 50. His electrolytes stabilized with sodium 136 today, potassium 3.9, chloride 104, calcium 8.7, magnesium 2. Urinalysis was clear during his stay. BUN today is 8, creatinine is 0.56. He was found to have an x-ray of his left shoulder and was found to have a grade [address] Gill was consulted and his prescriptions were to limit his activity of the shoulder until he has improvement. He recommended passive range of motion. The patient had a very difficult time manipulating and doing his own activities of daily living. [facility] accepted him as a patient and his case was sent to his insurance, [employer]. They required 3 days for evaluation and he was required to stay in the hospital during this 3 day period as the patient was unable to do anything for himself. He required almost full assistance with his activities of daily living, including toileting. He was denied admission to the rehab facility. It was resubmitted but at this point today his mother is having problems at home. He takes care of her routinely. Her medications are messed up and he has requested that he be discharged home with [facility] and physical therapy to assist him. DISCHARGE PLAN: The patient will be discharged home in stable condition. He is to have [facility] and physical therapy. He had been transitioned to Bactrim and Cefdinir. He had tolerated those without any problems over the last few days. His lower extremity cellulitis improved and he will be sent home on his previous medications with the exception of his Invokana. I have decreased his Toujeo to 50 units daily. He will also have Bactrim and Cefdinir. He is to followup with Dr. Gautam, his primary care physician, on 04/30/18 at 9:15 AM. He is also to see Dr. Donaldson in their pacemaker clinic on 05/04/18 at 10:25 for a pacemaker check. He is to return to the hospital or call Dr. Gautam's office for any other problems or complications. DISCHARGE MEDICATIONS: 1. Carafate. 2. Omeprazole. 3. Metoprolol. 4. Aspirin. 5. Potassium chloride. 6. Vasotec 7. Furosemide. 8. Zaroxolyn. 9. Prozac. 10. Digoxin. 11. Ambien. 12. Vitamin C. 13. Trazodone. 14. Ferrous sulfate. 15. Align. 16. Cefdinir. 17. Fluconazole. 18. Ketoconazole cream. 19. Toujeo. 20. Nystatin. 21. Polyethylene glycol. 22. Bactrim DS. #[id number] [facility]
== END 2018-04-22 15:15 | disposition home health service (06) | DRG 683 ==
LOC: ER 07:27 → MS 10:59
PROVIDERS: ADMIT Nurse Practitioner Family; ATTEND Nurse Practitioner Acute Care
DX: N17.9 Acute kidney failure, unspecified (principal); L03.116 Cellulitis of left lower limb; E87.1 Hypo-osmolality and hyponatremia; Z68.43 Body mass index [BMI] 50.0-59.9, adult; I89.0 Lymphedema, not elsewhere classified; E66.01 Morbid (severe) obesity due to excess calories; Z98.84 Bariatric surgery status; E11.65 Type 2 diabetes mellitus with hyperglycemia; I11.0 Hypertensive heart disease with heart failure; I50.9 Heart failure, unspecified; D64.9 Anemia, unspecified; I48.2 Chronic atrial fibrillation; S43.102A Unspecified dislocation of left acromioclavicular joint, initial encounter; W18.30XA Fall on same level, unspecified, initial encounter; E86.0 Dehydration; G47.30 Sleep apnea, unspecified; L30.4 Erythema intertrigo; M79.3 Panniculitis, unspecified; G47.33 Obstructive sleep apnea (adult) (pediatric); K59.09 Other constipation; K64.4 Residual hemorrhoidal skin tags; Z87.11 Personal history of peptic ulcer disease; Z95.0 Presence of cardiac pacemaker; Z91.19 Patient's noncompliance with other medical treatment and regimen; Z79.82 Long term (current) use of aspirin; Z79.4 Long term (current) use of insulin

== ENCOUNTER → 2018-07-16 | Outpatient (CLI) | payer OTHER | LOC: GMAE 10:45 | PROVIDERS: ATTEND Family Medicine | DX: E11.21 Type 2 diabetes mellitus with diabetic nephropathy (principal); N19 Unspecified kidney failure; E03.9 Hypothyroidism, unspecified; Z79.899 Other long term (current) drug therapy ==

== ENCOUNTER → 2018-12-28 | Outpatient (CLI) | payer OTHER | LOC: GMAE 17:40 | PROVIDERS: ATTEND Family Medicine | DX: I50.23 Acute on chronic systolic (congestive) heart failure (principal) ==

== ENCOUNTER → 2019-11-30 | Outpatient (CLI) | payer OTHER | LOC: GMAE 14:31 | PROVIDERS: ATTEND Family Medicine | DX: L89.623 Pressure ulcer of left heel, stage 3 (principal) ==

== ENCOUNTER → 2020-02-23 | Outpatient (CLI) | payer OTHER ==
--- NOTE | 2020-02-23 17:34 | RAD ---
EXAM DESCRIPTION: Knee,Left Complete CLINICAL HISTORY: 55 years Male, PAIN IN LEFT KNEE COMPARISON: None. Findings: 3 views/radiographs Location: Left knee No acute fracture or dislocation. Severe left knee osteoarthritis with preferential involvement of the medial compartment. Asymmetric patellofemoral narrowing. Small joint effusion. Osteopenia. IMPRESSION: Severe left knee osteoarthritis with a small joint effusion. No acute osseous abnormality identified. Electronically signed by: Matt Cunningham MD 02/23/2020 5:32 PM CDT
--- NOTE | 2020-02-23 17:35 | RAD ---
EXAM DESCRIPTION: Knee,Right Complete CLINICAL HISTORY: 55 years Male, PAIN IN RIGHT KNEE COMPARISON: None. Findings: 3 views/radiographs Location: Right knee No acute fracture or dislocation. Severe right knee osteoarthritis. Tricompartmental osteophytes. Small joint effusion. Osteopenia. Patellofemoral narrowing. IMPRESSION: Severe right knee osteoarthritis with a small joint effusion. No acute osseous abnormality. Electronically signed by: Matt Cunningham MD 02/23/2020 5:33 PM CDT
--- NOTE | 2020-02-23 17:36 | RAD ---
EXAM DESCRIPTION: Pelvis CLINICAL HISTORY: 55 years Male, HIP PAIN RIGHT AND LEFT COMPARISON: None. Findings: 3 view(s)/radiograph(s) Mild right hip osteoarthritis. Moderate left hip osteoarthritis. No acute fracture or dislocation. No focal soft tissue swelling. IMPRESSION: Degenerative changes. No acute osseous normality. Electronically signed by: Matt Cunningham MD 02/23/2020 5:34 PM CDT
== END ==
LOC: RAD 09:55
PROVIDERS: ATTEND Orthopaedic Surgery
DX: M16.0 Bilateral primary osteoarthritis of hip (principal); M17.0 Bilateral primary osteoarthritis of knee; M25.461 Effusion, right knee; M25.462 Effusion, left knee

== ENCOUNTER → 2020-08-14 | Outpatient (CLI) | payer MEDICARE | LOC: LAB.O 15:41 | PROVIDERS: ATTEND Internal Medicine Interventional Cardiology | DX: I50.9 Heart failure, unspecified (principal) ==

== ENCOUNTER → 2020-09-11 | Outpatient (CLI) | payer MEDICARE | LOC: BFHH 13:33 | PROVIDERS: ATTEND Family Medicine | DX: I11.0 Hypertensive heart disease with heart failure (principal); I50.22 Chronic systolic (congestive) heart failure; I89.0 Lymphedema, not elsewhere classified ==